=== PATIENT | male | born 1940 | race Caucasian/White ===

== ENCOUNTER 2022-08-10 18:04 | Outpatient (RCR) | payer MEDICARE, SELFPAY | END 2022-09-04 23:59 | disposition home or self-care (01) | LOC: MM 18:04 | PROVIDERS: PCP Internal Medicine; Visit Provider Internal Medicine | DX: Z51.81 Encounter for therapeutic drug level monitoring (principal); Z79.01 Long term (current) use of anticoagulants; D68.59 Other primary thrombophilia; E78.5 Hyperlipidemia, unspecified; I10 Essential (primary) hypertension; D64.9 Anemia, unspecified ==

== ENCOUNTER 2022-08-18 08:07 | Outpatient (OUT) | payer MEDICARE, SELFPAY ==
[2022-08-18 08:46] LABS: Basophils Percent Auto 0.2 % (0.2-2.0); Eosinophils Absolute Auto 0.2 10^3/uL (0.0-0.7); Immature Granulocytes Abs Auto 0.01 10^3/uL (0.00-0.03); Immature Granulocytes Pct Auto 0.2 % (0.0-0.5); Lymphocytes Absolute Auto 0.9 10^3/uL (1.2-3.8); Lymphocytes Percent Auto 20.4 % (20.5-60.0); Mean Corpuscular HGB Conc 33.3 g/dL (29.9-35.2); Mean Corpuscular Hemoglobin 33.1 pg (25.9-34.0); Mean Corpuscular Volume 99.3 fL (80.0-94.0); Mean Platelet Volume 8.3 fL (9.5-13.5); Monocytes Absolute Auto 0.5 10^3/uL (0.3-0.8); Monocytes Percent Auto 10.4 % (1.7-12.0); Neutrophils Absolute Auto 2.9 10^3/uL (1.4-6.5); Neutrophils Percent Auto 64.8 % (43.0-75.0); Platelet Count 127 10^3/uL (150-450); Red Blood Count 4.23 10^6/uL (4.70-6.10); Red Cell Distribution Width 12.6 % (11.0-15.0); White Blood Count 4.5 10^3/uL (4.0-11.0)
[2022-08-18 09:55] LABS: Alanine Aminotransferase 19 U/L (16-63); Albumin Globulin Ratio 0.9; Albumin Level 3.5 g/dL (3.4-5.0); Alkaline Phosphatase 52 U/L (46-116); Anion Gap 8.7; Aspartate Amino Transferase 16 U/L (15-37); Bilirubin Total 0.6 mg/dL (0.2-1.0); Calcium 8.7 mg/dL (8.5-10.1); Carbon Dioxide 30.6 mmol/L (21.0-32.0); Chloride 105 mmol/L (98-107); Chol HDL Ratio 2.4; Cholesterol 153 mg/dL (<=200); Estimated GFR (African America >60 (>=60); Estimated GFR (Non-African Ame >60 (>=60); Globulin 3.7 g/dL; Glucose 96 mg/dL (74-106); HDL Cholesterol 65 mg/dL (40-60); Potassium 4.3 mmol/L (3.5-5.1); Sodium 140 mmol/L (136-145); Total Protein 7.2 g/dL (6.4-8.2); Triglycerides 72 mg/dL (<=150); VLDL CHOLESTEROL 14.4 mg/dL
== END 2022-08-18 08:08 ==
LOC: LAB 08:12
PROVIDERS: PCP Specialist; Visit Provider Specialist
DX: I10 Essential (primary) hypertension (principal); D64.9 Anemia, unspecified; D68.59 Other primary thrombophilia; E78.5 Hyperlipidemia, unspecified; Z92.29 Personal history of other drug therapy
CPT/HCPCS: 36415; 80053; 80061; 85025; 85610; G0463

== ENCOUNTER 2022-09-09 10:28 | Outpatient (RCR) | payer MEDICARE, SELFPAY | END 2022-10-05 17:12 | disposition home or self-care (01) | LOC: MM 10:28 | PROVIDERS: PCP Internal Medicine; Visit Provider Internal Medicine | DX: Z51.81 Encounter for therapeutic drug level monitoring (principal); Z79.01 Long term (current) use of anticoagulants; D68.59 Other primary thrombophilia; Z92.29 Personal history of other drug therapy; I10 Essential (primary) hypertension; E78.5 Hyperlipidemia, unspecified | CPT/HCPCS: 85610; G0463 ==

== ENCOUNTER 2022-10-06 10:01 | Outpatient (RCR) | payer MEDICARE, SELFPAY | END 2022-11-05 17:45 | disposition home or self-care (01) | LOC: MM 10:01 | PROVIDERS: PCP Internal Medicine; Visit Provider Internal Medicine | DX: Z51.81 Encounter for therapeutic drug level monitoring (principal); Z79.01 Long term (current) use of anticoagulants; D68.59 Other primary thrombophilia; D64.9 Anemia, unspecified; E78.5 Hyperlipidemia, unspecified; I10 Essential (primary) hypertension | CPT/HCPCS: 85610; G0463 ==

== ENCOUNTER 2023-01-12 08:00 | Outpatient (RCR) | payer MEDICARE, SELFPAY | END 2023-02-04 16:33 | disposition home or self-care (01) | LOC: MM 08:00 | PROVIDERS: PCP Internal Medicine; Visit Provider Internal Medicine | DX: Z51.81 Encounter for therapeutic drug level monitoring (principal); Z79.01 Long term (current) use of anticoagulants; D68.59 Other primary thrombophilia; D64.9 Anemia, unspecified; Z92.29 Personal history of other drug therapy; E78.5 Hyperlipidemia, unspecified; I10 Essential (primary) hypertension | CPT/HCPCS: 85610; G0463 ==

== ENCOUNTER 2023-02-05 09:51 | Outpatient (RCR) | payer MEDICARE, SELFPAY | END 2023-03-05 15:36 | disposition home or self-care (01) | LOC: MM 09:51 | PROVIDERS: PCP Internal Medicine; Visit Provider Internal Medicine | DX: I10 Essential (primary) hypertension (principal); E78.5 Hyperlipidemia, unspecified; D64.9 Anemia, unspecified; D68.59 Other primary thrombophilia; Z92.29 Personal history of other drug therapy | CPT/HCPCS: 85610; G0463 ==

== ENCOUNTER 2023-03-08 02:42 | Outpatient (RCR) | payer MEDICARE, SELFPAY | END 2023-04-07 17:22 | disposition home or self-care (01) | LOC: MM 02:42 | PROVIDERS: PCP Internal Medicine; Visit Provider Internal Medicine | DX: Z51.81 Encounter for therapeutic drug level monitoring (principal); Z79.01 Long term (current) use of anticoagulants; I10 Essential (primary) hypertension; E78.5 Hyperlipidemia, unspecified; D64.9 Anemia, unspecified; D68.59 Other primary thrombophilia | CPT/HCPCS: 85610; G0463 ==

== ENCOUNTER 2023-04-08 01:59 | Outpatient (RCR) | payer MEDICARE, SELFPAY | END 2023-05-06 17:37 | disposition home or self-care (01) | LOC: MM 01:59 | PROVIDERS: PCP Internal Medicine; Visit Provider Internal Medicine | DX: Z51.81 Encounter for therapeutic drug level monitoring (principal); Z79.01 Long term (current) use of anticoagulants; I10 Essential (primary) hypertension; E78.5 Hyperlipidemia, unspecified; Z92.29 Personal history of other drug therapy; D64.9 Anemia, unspecified; D68.59 Other primary thrombophilia | CPT/HCPCS: 85610; G0463 ==

== ENCOUNTER 2023-05-07 03:43 | Outpatient (RCR) | payer MEDICARE, SELFPAY | END 2023-06-04 14:19 | disposition home or self-care (01) | LOC: MM 03:43 | PROVIDERS: PCP Internal Medicine; Visit Provider Internal Medicine | DX: Z51.81 Encounter for therapeutic drug level monitoring (principal); Z79.01 Long term (current) use of anticoagulants; D68.59 Other primary thrombophilia; D64.9 Anemia, unspecified; E78.5 Hyperlipidemia, unspecified; I10 Essential (primary) hypertension | CPT/HCPCS: 85610; G0463 ==

== ENCOUNTER 2023-06-07 03:09 | Outpatient (RCR) | payer MEDICARE, SELFPAY | END 2023-07-06 18:05 | disposition home or self-care (01) | LOC: MM 03:09 | PROVIDERS: PCP Internal Medicine; Visit Provider Internal Medicine | DX: Z51.81 Encounter for therapeutic drug level monitoring (principal); Z79.01 Long term (current) use of anticoagulants; I10 Essential (primary) hypertension; E78.5 Hyperlipidemia, unspecified; D64.9 Anemia, unspecified; D68.59 Other primary thrombophilia | CPT/HCPCS: 85610; G0463 ==

== ENCOUNTER 2023-07-07 00:25 | Outpatient (RCR) | payer MEDICARE, SELFPAY | END 2023-08-06 11:24 | disposition home or self-care (01) | LOC: MM 00:25 | PROVIDERS: PCP Internal Medicine; Visit Provider Internal Medicine | DX: Z51.81 Encounter for therapeutic drug level monitoring (principal); Z79.01 Long term (current) use of anticoagulants; I48.91 Unspecified atrial fibrillation | CPT/HCPCS: 85610; G0463 ==

== ENCOUNTER 2023-08-09 03:19 | Outpatient (RCR) | payer MEDICARE, SELFPAY | END 2023-09-03 10:49 | disposition home or self-care (01) | LOC: MM 03:19 | PROVIDERS: PCP Internal Medicine; Visit Provider Internal Medicine | DX: Z51.81 Encounter for therapeutic drug level monitoring (principal); Z79.01 Long term (current) use of anticoagulants; D68.59 Other primary thrombophilia; I10 Essential (primary) hypertension; E78.5 Hyperlipidemia, unspecified; D64.9 Anemia, unspecified | CPT/HCPCS: 85610; G0463 ==

== ENCOUNTER 2023-09-06 00:32 | Outpatient (RCR) | payer MEDICARE, SELFPAY | END 2023-10-06 10:13 | disposition home or self-care (01) | LOC: MM 00:32 | PROVIDERS: PCP Internal Medicine; Visit Provider Internal Medicine | DX: Z51.81 Encounter for therapeutic drug level monitoring (principal); Z79.01 Long term (current) use of anticoagulants; I10 Essential (primary) hypertension; E78.5 Hyperlipidemia, unspecified; D64.9 Anemia, unspecified; D68.59 Other primary thrombophilia | CPT/HCPCS: 85610; G0463 ==

== ENCOUNTER 2023-09-23 13:40 | Outpatient (OUT) | payer MEDICARE, SELFPAY ==
--- NOTE | 2023-09-23 | MR_ITS ---
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 TECHNIQUE: Multisequence MRI brain was performed with and without intravenous contrast. FINDINGS: There is no restricted diffusion to suggest acute infarct. There is no midline shift, mass effect, or abnormal extraaxial fluid collections. There are no abnormal parenchymal or leptomeningeal enhancement. There is mild enlargement of the cortical sulci and prominence of ventricular system, consistent with mild cerebral atrophy. There are a few nonspecific scattered foci of T2/FLAIR signal abnormality in the subcortical and periventricular white matter, likely reflect chronic microvascular ischemic changes. The major intracranial flow voids are visualized. The cerebellar tonsils are normal in position. The orbits demonstrate no suspicious enhancement or any focal lesions. The paranasal sinuses show no air-fluid level. The mastoid air cells are clear. The calvarium and extracranial soft tissues are unremarkable. MR/MR head/brain wo/w con IMPRESSION: No acute intracranial abnormality or abnormal intracranial enhancement. 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 Electronically authenticated by: BRITT DICK Date: 09/23/2023 23:22
--- NOTE | 2023-09-23 | MR_ITS ---
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 TECHNIQUE: MRI of the orbits was performed without and with contrast. FINDINGS: The globes are symmetric, normal in size, contour, and signal intensity. No orbital mass is visualized. The bilateral optic nerve, the optic chiasm and optic nerve sheaths are normal in signal and caliber, without abnormal enhancement. No suprasellar mass is present. The orbital fat is within normal limits, without fat stranding. The extraocular muscles are normal in caliber. The lacrimal glands are unremarkable. Both superior ophthalmic veins are normal and not dilated. Cavernous sinuses are normal. Mild T2/FLAIR signal abnormality are identified in the supratentorial white matter, most likely represent chronic microvascular ischemic changes. The preseptal, periorbital soft tissues appear normal. The paranasal sinuses show no air-fluid level. MR/MR orbit wo/w con IMPRESSION: Unremarkable MRI of orbits performed without and with contrast. Electronically authenticated by: BRITT DICK Date: 09/23/2023 23:28
--- OUTSIDE RECORDS SUMMARY | 2023-09-23 14:02 | XMS_ITS | CCD ---
Author Organization [facility] Care Team Providers Care Clock Maker Name Role Phone GERALDO ALTAMIRANO Primary Care Physician [phone] EVIE ., DR GERALDO Childers Admitting Unavailable ALTAMIRANO ., DR GERALDO Childers Attending Unavailable ALTAMIRANO ., DR GERALDO Childers Primary Care Unavailable ALTAMIRANO ., DR GERALDO Childers Consulting Unavailable ALTAMIRANO ., DR GERALDO Childers Admitting Unavailable ALTAMIRANO ., DR GERALDO Childers Attending Unavailable ALTAMIRANO ., DR GERALDO Childers Primary Care Unavailable ALTAMIRANO ., DR GERALDO Childers Consulting Unavailable ALTAMIRANO ., DR GERALDO Childers Admitting Unavailable ALTAMIRANO ., DR GERALDO Childers Attending Unavailable ALTAMIRANO ., DR GERALDO Childers Primary Care Unavailable ALTAMIRANO ., DR GERALDO Childers Consulting Unavailable ALTAMIRANO ., DR GERALDO Childers Consulting Unavailable ALTAMIRANO ., DR GERALDO Childers Admitting Unavailable ALTAMIRANO ., DR GERALDO Childers Attending Unavailable ALTAMIRANO ., DR GERALDO Childers Primary Care Unavailable ALTAMIRANO ., DR GERALDO Childers Attending Unavailable ALTAMIRANO ., DR GERALDO Childers Admitting Unavailable ALTAMIRANO ., DR GERALDO Childers Primary Care Unavailable ALTAMIRANO ., DR GERALDO Childers Consulting Unavailable ALTAMIRANO ., DR GERALDO Childers Attending Unavailable ALTAMIRANO ., DR GERALDO Childers Admitting Unavailable ALTAMIRANO ., DR GERALDO Childers Primary Care Unavailable ALTAMIRANO ., DR GERALDO Childers Consulting Unavailable ALTAMIRANO ., DR GERALDO Childers Attending Unavailable ALTAMIRANO ., DR GERALDO Childers Admitting Unavailable ALTAMIRANO ., DR GERALDO Childers Primary Care Unavailable ALTAMIRANO ., DR GERALDO Childers Consulting Unavailable ALTAMIRANO ., DR GERALDO Childers Attending Unavailable ALTAMIRANO ., DR GERALDO Childers Admitting Unavailable ALTAMIRANO ., DR GERALDO Childers Primary Care Unavailable ALTAMIRANO ., DR GERALDO Childers Consulting Unavailable ALTAMIRANO ., DR GERALDO Childers Attending Unavailable ALTAMIRANO ., DR GERALDO Childers Admitting Unavailable ALTAMIRANO ., DR GERALDO Childers Primary Care Unavailable ALTAMIRANO ., DR GERALDO Childers Consulting Unavailable ALTAMIRANO ., DR GERALDO Childers Admitting Unavailable ALTAMIRANO ., DR GERALDO Childers Consulting Unavailable ALTAMIRANO ., DR GERALDO Childers Primary Care Unavailable ALTAMIRANO ., DR GERALDO Childers Attending Unavailable ALTAMIRANO ., DR GERALDO Childers Admitting Unavailable ALTAMIRANO ., DR GERALDO Childers Attending Unavailable ALTAMIRANO ., DR GERALDO Childers Consulting Unavailable ALTAMIRANO ., DR GERALDO Childers Primary Care Unavailable ALTAMIRANO ., DR GERALDO Childers Admitting Unavailable ALTAMIRANO ., DR GERALDO Childers Attending Unavailable ALTAMIRANO ., DR GERALDO Childers Primary Care Unavailable ALTAMIRANO ., DR GERALDO Childers Consulting Unavailable ALTAMIRANO, GERALDO ROACH Primary Care Unavailable DANITZA V, AUDELIA Referring Unavailable ALTAMIRANO, GERALDO ROACH Primary Care Unavailable DANITZA V, AUDELIA Admitting Unavailable DANITZA V, AUDELIA Referring Unavailable DANIZTA V, AUDELIA Attending Unavailable ALTAMIRANO, GERALDO ANGELIMIMI Primary Care Unavailable DANITZA V, AUDELIA Attending Unavailable DANITZA V, AUDELIA Referring Unavailable POLINA OLIVIA Primary Care Unavailable DANITZA V, AUDELIA Referring Unavailable POLINA OLIVIA Primary Care Unavailable ALTAMIRANO, GERALDO ROACH Primary Care Unavailable DANITZA V, AUDELIA Attending Unavailable DANITZA V, AUDELIA Admitting Unavailable DANITZA V, AUDELIA Referring Unavailable Polina Olivia. Primary Care Physician Albaro NEWBERRY Attending Unavailable Albaro NEWBERRY Admitting Unavailable Polina Olivia Attending Unavailable Polina Olivia Attending Unavailable Polina Olivia Attending Unavailable Albaro NEWBERRY Attending Unavailable Leelee Castaneda Attending Unavailable Leelee Castaneda Admitting Unavailable LeonelLeelee quintana Attending Unavailable LeonelLeelee quintana Admitting Unavailable Polina Olivia Attending Unavailable MCKENZIE LOERA Attending Unavailable Allergies Allergy Classification Reported Allergen(s) Allergy Type Date of Onset Reaction(s) Facility (6 sources) Adhesive bandage; Translations: [Adhesive Bandage] Drug allergy Red color (qualifier value) [facility] (4 sources) Red Dye 1 Propensity to adverse reactions to substance Swelling, Hives [facility] Comment on above: swelling of tongue a nd lips (5 sources) Contrast media; Translations: [RED DYE] Drug allergy (disorder) 5 [facility] (8 sources) Latex; Translations: [LATEX] Drug allergy (disorder) 6 Eruption of skin (disorder) [facility] (1 source) Misc-Food; Translations: [Misc-Food] Food allergy (disorder) 4 [facility] (1 source) Adhesive agent; Translations: [ADHESIVE] Propensity to adverse reactions to drug (disorder) 3 [facility] (1 source) Mold; Translations: [MOLD EXTRACTS] Propensity to adverse reactions to drug (disorder) 3 [facility] (2 sources) No Known Medication Allergies; Translations: [No Known Medication Allergies] Propensity to adverse reactions (disorder) [facility] Medications Current Medications Medication Drug Class(es) Dates Sig (Normalized) Sig (Original) atenolol 50 mg oral tablet (4 sources) beta-Adrenergic Dejon Start: 06-01-2023 take 1 tablet by mouth once daily atenolol 50 mg Tab 50 mg = 1 tab(s), Oral, Daily, # 90 tab(s), Refills(s) 1, Pharmacy: [facility], 172, cm, 12/16/22 10:02:00 EDT, Height/Length Dosing, 73, kg, 12/16/22 10:02:00 EDT, Weight Dosing Start Date: 06/01/23 Status: Ordered Start: 11-17-2018 take 50 mg by mouth once daily atenolol 50 mg, Oral, Daily, Refills(s) 0 Start Date: 11/17/18 Status: Ordered famotidine 10 mg oral tablet (4 sources) Histamine-2 Receptor Antagonist Start: 03-28-2019 take 1 tablet by mouth once daily famotidine 10 mg oral tablet 10 mg = 1 tab(s), Oral, Daily Start Date: 03/28/19 Status: Ordered simvastatin 10 mg oral tablet (4 sources) HMG-CoA Reductase Inhibitor Start: 06-01-2023 take 1 tablet by mouth once daily at bedtime Zocor 10 mg Tab 10 mg, Oral, Once a day (at bedtime), # 90 tab(s), Refills(s) 1, Pharmacy: [facility], 172, cm, 12/16/22 10:02:00 EDT, Height/Length Dosing, 73, kg, 12/16/22 10:02:00 EDT, Weight Dosing Start Date: 06/01/23 Status: Ordered Start: 11-17-2018 take 10 mg by mouth once daily at bedtime Zocor 10 mg, Oral, Once a day (at bedtime), Refills(s) 0 Start Date: 11/17/18 Status: Ordered vitamin B12 (4 sources) Vitamin B12 Start: 11-17-2018 Vitamin B12 50 0 microgram, Oral, Daily, Refills(s) 0 Start Date: 11/17/18 Status: Ordered Vitamin D3 (4 sources) Start: 11-17-2018 Vitamin D3 See Instructions, 2,000 International_Unit Oral Daily, Refills(s) 0 Start Date: 11/17/18 Status: Ordered warfarin sodium 5 mg oral tablet (4 sources) Vitamin K Antagonist Start: 11-17-2018 warfarin See Instructions, take 5mg orally on mondays, wednesdays and fridays and 7.5 mg on tuesdays, , wednesday and sundays, Refills(s) 0 Start Date: 11/17/18 Status: Ordered Start: 11-17-2018 take 6.43 mg by mout h once daily warfarin 6.43 mg, Oral, Daily, Refills(s) 0 Start Date: 11/17/18 Status: Ordered Completed/Discontinued Medications Medication Drug Class(es) Dates Sig (Normalized) Sig (Original) ciprofloxacin 250 mg oral tablet (3 sources) Quinolone Antimicrobial Start: 07-01-2023 take 1 tablet by mouth once daily Cipro 250 mg Tab 250 mg = 1 tab(s), Oral, Daily, Take 1 tablet the day before the procedure and 1 tablet after the procedure, # 2 tab(s), Refills(s) 0, Pharmacy: [facility]/pharmacy #[id number], 172, cm, 12/16/22 10:02:00 EDT, Height/Length Dosing, 73, kg, 12/16/22 10:02:00 EDT, Weight Dosing Start Date: 07/01/23 Status: Ordered Start: 07-10-2021 take 1 tablet by ion th every twenty-four hours Cipro 500 mg Tab 500 mg = 1 tab(s), Oral, q24hr, Take 1 pill the day before the procedure and 1 pill after the procedure., # 2 tab(s), Refills(s) 0, Pharmacy: [facility]/pharmacy #[id number], 180, cm, 07/03/20 11:16:00 EDT, Height/Length Dosing, 75.6, kg, 06/25/20 13:44:00 Samuel SOLIMAN. Start Date: 07/10/21 Status: Ordered Problems Active Problems Problem Classification Problem Date Documented Date Episodic/Chronic Abdominal hernia (4 sources) Hiatal hernia 10-26-2018 Episodic Blindness and vision defects (2 sources) Diplopia; Translations: [Diplopia] Onset: 09-03-2023 Episodic Cancer of bladder (1 source) Malignant tumor of urinary bladder 10-26-2018 Chronic Cancer of bladder (1 source) History of malignant neoplasm of bladder; Translations: [Personal history of malignant neoplasm of bladder] Onset: 07-16-2023 Episodic Cancer; other and unspecified primary (4 sources) History of bladder neoplasm 11-17-2018 Episodic Cataract (1 source) Combined forms of age-related cataract, bilateral; Translations: [Combined forms of age-related cataract of both eyes] Onset: 03-31-2023 Chronic Coagulation and hemorrhagic disorders (4 sources) Other primary thrombophilia; Translations: [OTHER PRIMARY THROMBOPHILIA] Onset: 09-10-2021 Chronic Conditions associated with dizziness or vertigo (3 sources) Benign paroxysmal positional vertigo 08-04-2022 Episodic Deficiency and other anemia (3 sources) Anemia 08-04-2022 Episodic Disorders of lipid metabolism (5 sources) Hyperlipidemia; Translations: [Pure hypercholesterolemia, unspecified] Onset: 09-15-2021 10-26-2018 Chronic Esophageal disorders (3 sources) Gastroesophageal reflux disease without esophagitis; Translations: [Gastro-esophageal reflux disease without esophagitis] 10-29-2022 Chronic Essential hypertension (4 sources) Essential (primary) hypertension; Translations: [Essential hypertension] Onset: 09-15-2021 10-29-2022 Chronic Genitourinary symptoms and ill-defined conditions (12 sources) Increased frequency of urination; Translations: [Microscopic hematuria] 03-28-2019 Episodic Hyperplasia of prostate (5 sources) Benign prostatic hypertrophy with outflow obstruction; Translations: [Benign prostatic hyperplasia with lower urinary tract symptoms] Onset: 07-16-2023 10-26-2018 Chronic Nutritional deficiencies (1 source) Vitamin D deficiency, unspecified; Translations: [VITAMIN D DEFICIENCY UNSPECIFIED] Onset: 03-15-2022 Chronic Other aftercare (5 sources) skilled nursing (current) use of anticoagulants; Translations: [RESIDENTIAL CURRNT USE ANTICOAGULANTS] Onset: 09-15-2021 Episodic Other aftercare (1 source) Long-term current use of anticoagulant; Translations: [skilled nursing (current) use of anticoagulants] Onset: 07-16-2023 Episodic Other eye disorders (2 sources) Vertical strabismus, right eye; Translations: [Vertical strabismus, right eye] Onset: 09-03-2023 Episodic Other inflammatory condition of skin (1 source) Chafing of skin 08-10-2023 Episodic Other screening for suspected conditions (not mental disorders or infectious disease) (4 sources) Raised prostate specific antigen 09-26-2019 Episodic Pulmonary heart disease (5 sources) Pulmonary embolism; Translations: [Personal history of pulmonary embolism] Onset: 06-21-2022 10-26-2018 Episodic Residual codes; unclassified (4 sources) H/O: anticoagulant therapy 10-26-2018 Episodic Screening and history of mental health and substance abuse codes (4 sources) Ex-smoker 09-26-2019 Episodic Unclassified (4 sources) Asymptomatic microscopic hematuria 06-25-2020 Unclassified (4 sources) Drug therapy finding 09-26-2019 Unclassified (3 sources) Body mass index 20-24 - normal 08-04-2022 Unclassified (1 source) Seborrheic keratosis 08-10-2023 Past or Other Problems Problem Classification Problem Date Documented Da te Episodic/Chronic Deficiency and other anemia (4 sources) Nutritional anemia, unspecified; Translations: [NUTRITIONAL ANEMIA UNSPECIFIED] Onset: 03-10-2022 Episodic Malaise and fatigue (1 source) Other fatigue; Translations: [OTHER FATIGUE] Onset: 03-15-2022 Episodic Results Test Name Value Interpretation Reference Range Facility Ambulatory Visit Summaryon 0 08-10-2023 Ambulatory Visit Summary MCKENZIE MADRIGAL Matthew :1940 Visit Date:08/10/2023 Ambulatory Visit Instructions Your Diagnosis Pulmonary embolism Primary hypertension Anemia Anticoagulated Gastroesophageal reflux disease without esophagitis Mixed hyperlipidemia Chafing SK (seborrheic keratosis) Your Care Team Attending Physician - Polina Olivia MD Primary Care Physician - Polina Olivia MD This Is Your Medications List atenolol (atenolol 50 mg Tab) cholecalciferol (Vitamin D3) cyanocobalamin (Vitamin B12) famotidine (famotidine 10 mg oral tablet) simvastatin (Zocor 10 mg Tab) warfarin Procedures Performed Flexible cystoscope (07/16/2023), Transurethral resection of prostate (10/03/2013), Cystoscopy (07/21/2012), Transrectal biopsy of prostate using ultrasound (US) guidance (01/20/2002). Discharge Vitals Temperature (Temporal Artery) 37.4 ?C Heart Rate (Peripheral) 60 Respiratory Rate 16 Blood Pressure 124/80 Height 180 cm Height 71 in Weight 74.9 kg Weight 164.78 lb BMI 23.12 What to do next Scheduled Follow-Up Appointments Wednesday 9:30 AM EDT Where: [facility] Normal [facility] CBC w/ Auto Diffon 4 Basophils/100 WBC (Bld) 0.2 % Normal 0.0-2.0 [facility] Comment on above: Performed By: #### 2 [id number] #### [facility] [address] [place] [address] Basophils/Leukocytes Auto (Bld) [Pure # fraction] 0.0 E9/L Normal 0.0-0.2 [facility] Comment on above: Performed By: #### 2 [id number] #### [facility] [address] [place] [address] Eosinophils (Bld) [#/Vol] 0.1 E9/L Normal 0.0-0.5 [facility] Comment on above: Performed By: #### 2 [id number] #### [facility] [address] [place] [address] Eosinophils/100 WBC (Bld) 2.5 % Normal 0.0-8.0 [facility] Comment on above: Performed By: #### 2 [id number] #### [facility] [address] [place] [address] Erythrocyte distribution width (RBC) [Ratio] 13.5 % Normal 10.9-14.2 [facility] Comment on above: Performed By: #### 2 [id number] #### [facility] [address] [place] [address] Hematocrit (Bld) [Volume fraction] 38.3 % Normal 37.7-49.0 [facility] Comment on above: Performed By: #### 2 [id number] #### [facility] [address] [place] [address] Hemoglobin (Bld) [Mass/Vol] 13.2 g/dL Low 13.5-17.5 [facility] Comment on above: Performed By: #### 2 [id number] #### [facility] [address] [place] [address] Lymphocytes (Bld) [#/Vol] 1.2 E9/L Normal 1.0-4.0 [facility] Comment on above: Performed By: #### 2 [id number] #### [facility] [address] [place] [address] Lymphocytes/100 WBC (Bld) 22.9 % Normal 14.0-50.0 [facility] Comment on above: Performed By: #### 2 [id number] #### [facility] [address] [place] [address] MCH (RBC) [Entitic mass] 33.9 pg Normal 27.0-34.0 [facility] Comment on above: Performed By: #### 2 [id number] #### [facility] [address] [place] [address] MCHC (RBC) [Mass/Vol] 34.3 g/dL Normal 31.4-36.0 [facility] Comment on above: Performed By: #### 2 [id number] #### [facility] [address] [place] [address] MCV (RBC) [Entitic vol] 98.9 fL Normal 80.0-100.0 [facility] Comment on above: Performed By: #### 2 [id number] #### [facility] [address] [place] [address] Monocytes (Bld) [#/Vol] 0.5 E9/L Normal 0.2-1.0 [facility] Comment on above: Performed By: #### 2 [id number] #### [facility] [address] [place] [address] Neutrophils (Bld) [#/Vol] 3.4 E9/L Normal 2.0-7.5 [facility] Comment on above: Performed By: #### 2 [id number] #### [facility] [address] [place] [address] Neutrophils/100 WBC (Bld) 64.4 % Normal 36.0-75.0 [facility] Comment on above: Performed By: #### 2 [id number] #### [facility] [address] [place] [address] Platelet 149.0 E9/L Low 150.0-500.0 [facility] Comment on above: Performed By: #### 2 [id number] #### [facility] [address] [place] [address] Platelet mean volume (Bld) [Entitic vol] 6.7 fL Normal 6.4-10.8 [facility] Comment on above: Performed By: #### 2 [id number] #### [facility] [address] [place] [address] RBC (Bld) [#/Vol] 3.9 E12/L Low 4.3-5.9 [facility] Comment on above: Performed By: #### 2 [id number] #### [facility] [address] [place] [address] WBC corrected for nucl RBC Auto (Bld) [#/Vol] 5.2 E9/L Normal 4.0-11.0 [facility] Comment on above: Performed By: #### 2 [id number] #### [facility] [address] [place] [address] CHEMISTRYOrdered By: SYSTEM SYSTEM on 08-10-2023 Albumin [Mass/Vol] 3.9 g/dL Normal 3.3 - 5.0 gm/dL [facility] Albumin/Globulin [Mass ratio] 1.6 {ratio} Normal 1.1 - 2.2 [facility] ALP [Catalytic activity/Vol] 47 [iU]/d Normal 21 - 98 Int._Unit/L [facility] ALT No additional P-5'-P [Catalytic activity/Vol] 11 [iU]/d Normal 6 - 46 Int._Unit/L [facility] Anion gap [Moles/Vol] 8 mmol/L Normal 6 - 16 mEq/L R [facility] AST [Catalytic activity/Vol] 18 [iU]/d Normal 5 - 43 Int._Unit/L [facility] Bilirubin [Mass/Vol] 0.6 mg/dL Normal 0.0 - 1 .1 mg/dL [facility] Calcium [Mass/Vol] 8.4 mg/dL Low 8.9 - 11. 1 mg/dL [facility] Chloride [Moles/Vol] 106 mmol/L Normal 101 - 1 11 mmol/L [facility] Cholesterol [Mass/Vol] 138 mg/dL Normal 120 - 200 mg/dL [facility] Cholesterol in HDL [Mass/Vol] 48 mg/dL Invalid Interpretation Code [facility] Comment on above: Result Comment: '>= 60 LOW RISK' '<= 40 HIGH RISK' Cholesterol in LDL [Mass/Vol] 67 mg/dL Normal <=129mg/dL [facility] Cholesterol in VLDL [Mass/Vol] 30 mg/dL Normal 7 - 40 mg/dL [facility] CO2 [Moles/Vol] 29 mmol/L Normal 21 - 31 mmol/L [facility] Creatinine [Mass/Vol] 1.0 mg/dL Normal 0.5 - 1.3 mg/dL [facility] eGFR 75 mL/min/1.73 m2 Normal >=59mL/min /1 .73 m2 [facility] Globulin (S) [Mass/Vol] 2.5 g/dL Normal 1.4 - 4.0 gm/dL [facility] Glucose [Mass/Vol] 123 mg/dL Normal 55 - 199 mg/dL [facility] Potassium [Moles/Vol] 4.4 mmol/L Normal 3.5 - 5.3 mmol/L [facility] Protein [Mass/Vol] 6.4 g/dL Normal 6.0 - 7.8 gm/dL [facility] Sodium [Moles/Vol] 139 mmol/L Normal 135 - 145 mmol/L [facility] Triglyceride [Mass/Vol] 151 mg/dL High <=149mg/dL [facility] Urea nitrogen [Mass/Vol] 19 mg/dL Normal 5 - 21 mg/dL [facility] Urea nitrogen/Creatinine [Mass ratio] 19 mg/mg Normal 10 - 20 [facility] CMPon 08-10-2023 Albumin [Mass/Vol] 3.9 g/dL Normal 3.3-5.0 [facility] Comment on above: Performed By: #### 2 [id number] #### [facility] [address] [place] [address] Albumin/Globulin (S) [Mass conc ratio] 1.6 Normal 1.1-2.2 [facility] Comment on above: Performed By: #### 2 [id number] #### [facility] [address] [place] [address] ALP [Catalytic activity/Vol] 47 Int._Unit/L Normal 21-98 [facility] Comment on above: Performed By: #### 2 [id number] #### [facility] [address] [place] [address] ALT No additional P-5'-P [Catalytic activity/Vol] 11 Int._Unit/L Normal 6-46 [facility] Comment on above: Performed By: #### 2 [id number] #### [facility] [address] [place] [address] Anion gap [Moles/Vol] 8 mmol/L Normal 6-16 [facility] Comment on above: Performed By: #### 2 [id number] #### [facility] [address] [place] [address] AST [Catalytic activity/Vol] 18 Int._Unit/L Normal 5-43 [facility] Comment on above: Performed By: #### 2 [id number] #### [facility] [address] [place] [address] Bilirubin [Mass/Vol] 0.6 mg/dL Normal 0.0-1.1 [facility] Comment on above: Performed By: #### 2 [id number] #### [facility] [address] [place] [address] Calcium [Mass/Vol] 8.4 mg/dL Low 8.9-11.1 [facility] Comment on above: Performed By: #### 2 [id number] #### [facility] [address] [place] [address] Chloride [Moles/Vol] 106 mmol/L Normal 101-111 [facility] Comment on above: Performed By: #### 2 [id number] #### [facility] [address] [place] [address] CO2 [Moles/Vol] 29 mmol/L Normal 21-31 [facility] Comment on above: Performed By: #### 2 [id number] #### [facility] [address] [place] [address] Creatinine [Mass/Vol] 1.0 mg/dL Normal 0.5-1.3 [facility] Comment on above: Performed By: #### 2 [id number] #### [facility] [address] [place] [address] Globulin (S) [Mass/Vol] 2.5 g/dL Normal 1.4-4.0 [facility] Comment on above: Performed By: #### 2 [id number] #### [facility] [address] [place] [address] Glucose [Mass/Vol] 123 mg/dL Normal 55-199 [facility] Comment on above: Performed By: #### 2 [id number] #### [facility] [address] [place] [address] Potassium [Moles/Vol] 4.4 mmol/L Normal 3.5-5.3 [facility] Comment on above: Performed By: #### 2 [id number] #### [facility] [address] [place] [address] Protein [Mass/Vol] 6.4 g/dL Normal 6.0-7.8 [facility] Comment on above: Performed By: #### 2 [id number] #### [facility] [address] [place] [address] Sodium [Moles/Vol] 139 mmol/L Normal 135-145 [facility] Comment on above: Performed By: #### 2 674195 #### [facility] [address] [place] [address] Urea nitrogen [Mass/Vol] 19 mg/dL Normal 5-21 [facility] Comment on above: Performed By: #### 2 [id number] #### [facility] [address] [place] [address] Urea nitrogen/Creatinine [Mass ratio] 19 No Units Normal 10-20 [facility] Comment on above: Performed By: #### 2 [id number] #### [facility] [address] [place] [address] Family Medicine Office/Clini c Noteon 08-10-2023 Family Medicine Office/Clinic Note HPI Staff Mckenzie is an 83 year old male presenting for follow up htn, PE just renewed coumadin clinic for PT/INRs and monitoring warfarin dosing Patient is here for follow up on hypertension. How often are you checking your blood pressure? occasionally What are your average readings? been normal _ Yearly BMP: 08/18/22 questions/concerns: 1. does he need another covid shot and if so when 2. since he's lost weight has chaffing on his buttocks, causes raw areas 3. check spot on right arm History of Present Illness Here for follow up. - Hx of PE. - Multiple PE. Gets INR done. - Bps are good. - Has not had labs in a while. - NO issues with GERD - See staff HPI. Review of Systems PHQ Score Initial Depression Screen Score: 0 SCORE Physical Exam Vitals & Measurements T: 37.4 ?C(Temporal Artery) HR: 60(Peripheral) RR: 16 BP: 124/80 SpO2: 97% HT: 71 in HT: 180 cm WT: 74.9 kg WT: 164.78 lb BMI: 23.12 General: alert, no acute distress ENMT: oral mucosa moist, Cardiovascular: regular rate and rhythm, normal peripheral perfusion Respiratory: Lungs CTA, respirations non labored Extremities: no deformity, no trauma, Small SK noted on the R arm. Neurological: oriented x 4, LOC appropriate for age, CN II-XII intact, motor strength equal & normal bilaterally, speech normal Abdomen: Soft, Nontender, Non-distended, + BS Assessment/Plan 1. Pulmonary embolism (I26.99: Other pulmonary embolism without acute cor pulmonale) - No CP or SOB - INR is at goal after reviewing Ordered: CBC w/ Auto Diff Comprehensive Metabolic Panel Lab Specimen Collect 58442 Lipid Panel 2. Primary hypertension (I10: Essential (primary) hypertension) - At goal. - Continue meds as before Ordered: CBC w/ Auto Diff Comprehensive Metabolic Panel Lab Specimen Collect [id number] Lipid Panel 3. Anemia (D64.9: Anemia, unspecified) - Hx of - Need labs Ordered: CBC w/ Auto Diff Comprehensive Metabolic Panel Lab Specimen Collect 94276 Lipid Panel 4. Anticoagulated (Z79.01: manager intermediate (current) use of anticoagulants) - INR is at goal Ordered: CBC w/ Auto Diff Comprehensive Metabolic Panel Lab Specimen Collect [id number] Lipid Panel 5. Gastroesophageal reflux disease without esophagitis (K21.9: Gastro-esophageal reflux disease without esophagitis) - Controlled Ordered: CBC w/ Auto Diff Comprehensive Metabolic Panel Lab Specimen Collect 56611 Lipid Panel 6. Mixed hyperlipidemia (E78.2: Mixed hyperlipidemia) - Will check cholesterol today Ordered: CBC w/ Auto Diff Comprehensive Metabolic Panel Lipid Panel 7. Chafing (L30.4: Erythema intertrigo) - Use of vasoline will help. - Follow up PRN 8. SK (seborrheic keratosis) (L82.1: Other seborrheic keratosis) - Very small. - Advised monitoring - Follow up in 6 months for chronic issues. Discussed immunizations. Total time spent preparing for the encounter, evaluating and assessing the patient, documenting the visit, and ordering appropriate follow-up work was 50 minutes. Follow-up No qualifying data available Patient Education Hypertension, Adult Problem List/Past Medical History Ongoing Anemia Anticoagulated Asymptomatic microscopic hematuria Benign paroxysmal positional vertigo BMI 21.0-21.9, adult BPH with urinary obstruction Chafing Elevated PSA Former smoker Frequent urination Gastroesophageal reflux disease without esophagitis Hiatal hernia Hx of assisted use of blood thinners Mixed hyperlipidemia Personal history of bladder cancer Primary hypertension Pulmonary embolism SK (seborrheic keratosis) Historical Weak urine stream Procedure/Surgical History Flexible cystoscope (07/16/2023), Transurethral resection of prostate (10/03/2013), Cystoscopy (07/21/2012), Transrectal biopsy of prostate using ultrasound (US) guidance (01/20/2002). Medications atenolol 50 mg Tab, 50 mg= 1 tab(s), Oral, Daily, 1 refills famotidine 10 mg oral tablet, 10 mg= 1 tab(s), Oral, Daily Vitamin B12, 500 mcg, Oral, Daily Vitamin D3, See Instructions warfarin, See Instructions Zocor 10 mg Tab, 10 mg, Oral, Once a day (at bedtime), 1 refills Allergies Adhesive Bandage (Red) Latex (Rash) Red Dye (Swelling, Hives) Social History Alcohol - Low Risk, 11/17/2018 Beer, Others hurt by drinking: No., 12/16/2022 Tobacco Former smoker, quit more than 30 days ago Tobacco Use:. Never Smokeless Tobacco Use:. Cigarettes, Started age 20.0 Years. Stopped age 33 Years. Household tobacco concerns: No., 08/10/2023 Family History Acute myocardial infarction: Father. TB - Pulmonary tuberculosis: Father. Immunizations Vaccine Date Status Comments influenza virus vaccine, inactivated 12/05/2022 Recorded SARS-CoV-2 (COVID-19) [id number] 01/20/2022 Recorded influenza virus vaccine, inactivated 12/08/2021 Recorded SARSCoV2 mRNA(henkvsahm-cpof-tzk ros) vac 08/21/2021 Recorded influenza virus v (more content not included)... Normal [facility] Comment on above: Result Comment: Elec tronically Signed By: John HOWARD, Polina Cardenas\.br\Date and Time Signed: 08/10/23 13:37 EDT HEMATOLOGYOrdered By: SYSTEM SYSTEM on 08-10-2023 Basophils/100 WBC (Bld) 0.2 % Normal 0.0 - 2.0 % Remisol Heme Basophils/Leukocytes Auto (Bld) [Pure # fraction] 0.0 E9/L Normal 0.0 - 0.2 E9/L Remisol Heme Eosinophils (Bld) [#/Vol] 0.1 E9/L Normal 0.0 - 0.5 E9/L Remisol Heme Eosinophils/100 WBC (Bld) 2.5 % Normal 0.0 - 8.0 % Remisol Heme Erythrocyte distribution width (RBC) [Ratio] 13.5 % Normal 10.9 - 14.2 % Remisol Heme Hematocrit (Bld) [Volume fraction] 38.3 % Normal 37.7 - 49.0 % Remisol Heme Hemoglobin (Bld) [Mass/Vol] 13.2 g/dL Low 13.5 - 17.5 gm/dL Remisol Heme Lymphocytes (Bld) [#/Vol] 1.2 E9/L Normal 1.0 - 4.0 E9/L Remisol Heme Lymphocytes/100 WBC (Bld) 22.9 % Normal 14.0 - 50.0 % Remisol Heme MCH (RBC) [Entitic mass] 33.9 pg Normal 27.0 - 34.0 pg Remisol Heme MCHC (RBC) [Mass/Vol] 34.3 g/dL Normal 31.4 - 36.0 gm/dL Remisol Heme MCV (RBC) [Entitic vol] 98.9 fL Normal 80.0 - 100.0 fL Remisol Heme Monocytes (Bld) [#/Vol] 0.5 E9/L Normal 0.2 - 1.0 E9/L Remisol Heme Monocytes/100 WBC (Bld) 10.0 % Normal 4.0 - 14.0 % Remisol Heme Neutrophils (Bld) [#/Vol] 3.4 E9/L Normal 2.0 - 7.5 E9/L Remisol Heme Neutrophils/100 WBC (Bld) 64.4 % Normal 36.0 - 75.0 % Remisol Heme Platelet 149.0 E9/L Low 150.0 - 500.0 E9/L Remisol Heme Platelet mean volume (Bld) [Entitic vol] 6.7 fL Normal 6.4 - 10.8 fL Remisol Heme RBC (Bld) [#/Vol] 3.9 E12/L Low 4.3 - 5.9 E12/L Remisol Heme WBC corrected for nucl RBC Auto (Bld) [#/Vol] 5.2 E9/L Normal 4.0 - 11.0 E9/L Remisol Heme Lipid Panelon 08-10-2023 Cholesterol [Mass/Vol] 138 mg/dL Normal 120-200 [facility] Comment on above: Performed By: #### 2 [id number] #### [facility] [address] [place] [id number] Cholesterol in HDL [Mass/Vol] 48 mg/dL Invalid Interpretation Code [facility] Comment on above: Result Comment: '>= 60 LOW RISK' '<= 40 HIGH RISK' Performed By: #### 2 [id number] #### [facility] [address] [place] [address] Cholesterol in LDL [Mass/Vol] 67 mg/dL Normal <=129 [facility] Comment on above: Performed By: #### 2 [id number] #### [facility] [address] [place] [address] Cholesterol in VLDL [Mass/Vol] 30 mg/dL Normal 7-40 [facility] Comment on above: Performed By: #### 2 [id number] #### [facility] [address] [place] [address] Triglyceride [Mass/Vol] 151 mg/dL High <=149 [facility] Comment on above: Performed By: #### 2 [id number] #### [facility] [address] [place] [address] Patient Educationon 08-10-19 24 Patient Education Cardiovascular Hypertension, Adult High blood pressure (hypertension) is when the force of blood pumping through the arteries is too strong. The arteries are the blood vessels that carry blood from the heart throughout the body. Hypertension forces the heart to work harder to pump blood and may cause arteries to become narrow or stiff. Untreated or uncontrolled hypertension can lead to a heart attack, heart failure, a stroke, kidney disease, and other problems. A blood pressure reading consists of a higher number over a lower number. Ideally, your blood pressure should be below 120/80. The first ( top ) number is called the systolic pressure. It is a measure of the pressure in your arteries as your heart beats. The second ( bottom ) number is called the diastolic pressure. It is a measure of the pressure in your arteries as the heart relaxes. What are the causes? The exact cause of this condition is not known. There are some conditions that result in high blood pressure. What increases the risk? Certain factors may make you more likely to develop high blood pressure. Some of these risk factors are under your control, including: ? Smoking. ? Not getting enough exercise or physical activity. ? Being overweight. ? Having too much fat, sugar, calories, or salt (sodium) in your diet. ? Drinking too much alcohol. Other risk factors include: ? Having a personal history of heart disease, diabetes, high cholesterol, or kidney disease. ? Stress. ? Having a family history of high blood pressure and high cholesterol. ? Having obstructive sleep apnea. ? Age. The risk increases with age. What are the signs or symptoms? High blood pressure may not cause symptoms. Very high blood pressure (hypertensive crisis) may cause: ? Headache. ? Fast or irregular heartbeats (palpitations). ? Shortness of breath. ? Nosebleed. ? Nausea and vomiting. ? Vision changes. ? Severe chest pain, dizziness, and seizures. How is this diagnosed? This condition is diagnosed by measuring your blood pressure while you are seated, with your arm resting on a flat surface, your legs uncrossed, and your feet flat on the floor. The cuff of the blood pressure monitor will be placed directly against the skin of your upper arm at the level of your heart. Blood pressure should be measured at least twice using the same arm. Certain conditions can cause a difference in blood pressure between your right and left arms. If you have a high blood pressure reading during one visit or you have normal blood pressure with other risk factors, you may be asked to: ? Return on a different day to have your blood pressure checked again. ? Monitor your blood pressure at home for 1 week or longer. If you are diagnosed with hypertension, you may have other blood or imaging tests to help your health care provider understand your overall risk for other conditions. How is this treated? This condition is treated by making healthy lifestyle changes, such as eating healthy foods, exercising more, and reducing your alcohol intake. You may be referred for counseling on a healthy diet and physical activity. Your health care provider may prescribe medicine if lifestyle changes are not enough to get your blood pressure under control and if: ? Your systolic blood pressure is above 130. ? Your diastolic blood pressure is above 80. Your personal target blood pressure may vary depending on your medical conditions, your age, and other factors. Follow these instructions at home: Eating and drinking ? Eat a diet that is high in fiber and potassium, and low in sodium, added sugar, and fat. An example of this eating plan is called the DASH diet. DASH stands for Dietary Approaches to Stop Hypertension. To eat this way: ? Eat plenty of fresh fruits and vegetables. Try to fill one half of your plate at each meal with fruits and vegetables. ? Eat whole grains, such as whole-wheat pasta, brown rice, or whole-grain bread. Fill about one fourth of your plate with whole grains. ? Eat or drink low-fat dairy products, such as skim milk or low-fat yogurt. ? Avoid fatty cuts of meat, processed or cured meats, and poultry with skin. Fill about one fourth of your plate with lean proteins, such as fish, chicken without skin, beans, eggs, or tofu. ? Avoid pre-made and processed foods. These tend to be higher in sodium, added sugar, and fat. ? Reduce your daily sodium intake. Many people with hypertension should eat less than 1,500 mg of sodium a day. ? Do not drink alcohol if: ? Your health care provider tells you not to drink. ? You are , may be , or are planning to become . ? If you drink alcohol: ? Limit how much you have to: ? 0?1 drink a day for women. ? 0?2 drinks a day for men. ? Know how much alcohol is in your drink. In the [place] one drink equals one 12 oz bottle of beer (355 mL), one 5 oz glass of wine (148 mL), or one 1? oz glass (more content not included)... Normal [facility] eGFRon 08-10-2023 eGFR 75 mL/min/1.73 m2 Normal >=59 [facility] Comment on above: Order Comment: Order added by Discern Expert. Performed By: #### 1 [id number] #### [facility] [address] [place] [address] Physician Referralon 024 Physician Referral [id number] FF Normal [facility] UroVysion Fish and Urine Cyt o ([facility])on 07-23-2023 UVFISH & UC Diagnosis Info Invalid Interpretation Code [facility] Comment on above: Result Comment: A:Ur ine,Urine:Voided Diagnosis Summary - Diagnosis Summary - The UroVysion FISH study detected normal copy numbers for chromosomes 3, 7, 17, and 9p21. 105 cells were analyzed in this evaluation. No evidence of aneuploidy for chromosomes 3, 7, or 17 or deletion of the 9p21 locus was found in cells present in this specimen. This test does not rule out the possibility of a low grade non-invasive papillary urothelial carcinoma. These findings should be correlated with cytology and cystoscopy results.* Microscopic Notes - Microscopic Notes - Abnormal cells 9p21 deletions: Abnormal cells aneploid events: Total cells analyzed: 105 Hematuria: Gross Description Site ID:A color Yellow fixative Alcohol Received 110 mls of clear yellow fluid with the patient's name and, Urine on the vial. Electronically signed by : on: 07/23/2023 12:03:18 Performed By: #### 1 [id number] #### [facility] [address] [place] [address] Consent for Procedure/Surger yon 07-21-2023 Consent for Procedure/Surgery [id number] TIFF Normal [facility] Lab Reportson 07-21-2023 Lab Reports [id number] FF Normal [facility] Ambulatory Visit Summaryon 0 07-16-2023 Ambulatory Visit Summary MCKENZIE MADRIGAL :1940 Visit Date:07/16/2023 Ambulatory Visit Instructions Your Diagnosis Personal history of bladder cancer BPH with urinary obstruction Anticoagulated Your Care Team Attending Physician - Albaro NEWBERRY MD Primary Care Physician - Polina Olivia MD This Is Your Medications List ciprofloxacin (Cipro 250 mg Tab) Contact prescribing physician if questions or concerns atenolol (atenolol 50 mg Tab) cholecalciferol (Vitamin D3) cyanocobalamin (Vitamin B12) famotidine (famotidine 10 mg oral tablet) simvastatin (Zocor 10 mg Tab) warfarin Procedures Performed Flexible cystoscope (07/16/2023), Transurethral resection of prostate (10/03/2013), Cystoscopy (07/21/2012), Transrectal biopsy of prostate using ultrasound (US) guidance (01/20/2002). Discharge Vitals Heart Rate (Peripheral) 59 Blood Pressure 134/92 Height 180 cm Height 71 in Weight 72.2 kg Weight 158.84 lb BMI 22.28 What to do next Scheduled Follow-Up Appointments Wednesday 9:30 AM EDT Where: [facility] Normal [facility] UroVysion Fish and Urine Cyt o ([facility])on 07-16-2023 [facility] Method of Extraction Voided Normal [facility] Comment on above: Performed By: #### 1 [id number] #### [facility] [address] [place] [address] [facility] Number of Jars 1 Invalid Interpretation Code [facility] Comment on above: Performed By: #### 1 [id number] #### [facility] [address] [place] [address] [facility] Specimen Urine Normal [facility] Comment on above: Performed By: #### 1 [id number] #### [facility] [address] [place] [address] [facility] Type of Service Technical Only Normal [facility] Comment on above: Performed By: #### 1 [id number] #### [facility] [address] [place] [address] Urology Office/Clinic Noteon 07-16-2023 Urology Office/Clinic Note Chief Complaint cysto HPI Staff Cystoscopy for 1 year bladder check with FISH/Cytology. Abx taken History of Present Illness Tests reviewed: none. I have reviewed the previous health record information and history for this patient from Dr. Rob. I have reviewed and verified the staff HPI to be accurate for this encounter. There have been no associated fever, chills, flank pain, or blood in the urine. Denies any urinary infections since last encounter. Review of Systems PHQ Score Initial Depression Screen Score: 0 SCORE ROS - Provider Constitutional: denies weight loss, denies hot flashes. Eyes: denies eye problems. Gastrointestinal: denies nausea, denies vomiting. Cardiovascular: denies chest pain or angina. Integumentary: no dryness Musculoskeletal: denies musculoskeletal symptoms. ENMT: denies otolaryngeal symptoms. Respiratory: no shortness of breath. Heme/Lymph: denies easy bleeding tendency, denies easy bruising tendency. Psychiatric: no confusion, no anxiety. Genitourinary: See HPI. Procedure Operative Information Anesthesia Type: Local Procedure: Local Cystoscopy Complications: None Surgical risks, benefits, details of the procedure have been explained to the patient. Full informed consent has been obtained. Intraoperative Information Prepped: Patient is brought back to the endoscopy suite. Patient is placed in supine position. Patient prepped in the usual fashion with Betadine solution. 2% Xylocaine Jelly is placed per Urethra. After waiting several minutes, the Cystoscope is introduced. The Urethra is: Normal The Prostatic Urethra is: long, obstructing. large regrowth The Bladder: diffuse open diverticuli, neg for tumors., Trabeculated: Severe (3) The Ureteral orifices: Show efflux of clear urine. Specimens Removed: pt is going to try and void prior to leaving appt for FISH/cytology. Removal: Cystoscope is removed. The patient tolerated it well. Postoperative Information Patient is discharged home with antibiotic coverage. Follow up arranged. Assessment/Plan Former RWR pt. 1. Personal history of bladder cancer (Z85.51: Personal history of malignant neoplasm of bladder) Initial TURBT 10/03/13. Path shows noninvasive, high-grade papillary urothelial carcinoma. Muscularis propria (detrusor muscle) is present, and is neg for carcinoma. Last cysto 07/22/22. FISH/cytology negative. Cysto IO today without complications. Pt to complete prophy abx. Reference procedural section. -Cysto/FISH/cytol in 1 year 2. BPH with urinary obstruction (N40.1: Benign prostatic hyperplasia with lower urinary tract symptoms) S/p TURP 09/2013. Not taking any BPH meds. Cysto IO today without complications. Reference procedural section for findings. 3. Anticoagulated (Z79.01: manager intermediate (current) use of anticoagulants) Warfarin. Elevated risk for periop complications. Follow-up With When Contact Information TYSON HOWARD, Albaro Up, [address] [place] [address]- Additional Instructions: Cysto/FISH/cytol in 1 year Patient Education Cystoscopy I, rPiyanka Hassan, personally scribed for Dr. Newberry on 07/16/2023 13:55:14. Documentation recorded by the Priyanka wesley, accurately reflects the services(s) I performed and decisions made by me. Authenticated by Dr. Newberry on 07/16/2023 13:57:31.13:55:14. Problem List/Past Medical History Ongoing Anemia Anticoagulated Asymptomatic microscopic hematuria Benign paroxysmal positional vertigo BMI 21.0-21.9, adult BPH with urinary obstruction Elevated PSA Former smoker Frequent urination Gastroesophageal reflux disease without esophagitis Hiatal hernia Hx of assisted use of blood thinners Microhematuria Mixed hyperlipidemia Personal history of bladder cancer Primary hypertension Pulmonary embolism Historical Weak urine stream Procedure/Surgical History Flexible cystoscope (07/16/2023), Transurethral resection of prostate (10/03/2013), Cystoscopy (07/21/2012), Transrectal biopsy of prostate using ultrasound (US) guidance (01/20/2002). Medications atenolol 50 mg Tab, 50 mg= 1 tab(s), Oral, Daily, 1 refills Cipro 250 mg Tab, 250 mg= 1 tab(s), Oral, Daily famotidine 10 mg oral tablet, 10 mg= 1 tab(s), Oral, Daily Vitamin B12, 500 mcg, Oral, Daily Vitamin D3, See Instructions warfarin, See Instructions Zocor 10 mg Tab, 10 mg, Oral, Once a day (at bedtime), 1 refills Allergies Adhesive Bandage (Red) Latex (Rash) Red Dye (Swelling, Hives) Social History Alcohol - Low Risk, 11/17/2018 Beer, Others hurt by drinking: No., 12/16/2022 Tobacco Former smoker, quit more than 30 days ago Tobacco Use:. Never Smokeless Tobacco Use:. Cigarettes, Started age 18.0 Years. Stopped age 33 Years. Household tobacco concerns: No., 07/16/2023 Family History Acute myocardial infarction: Father. TB - Pulmonary tuberculosis: (more content not included)... Normal [facility] Comment on above: Result Comment: Elec tronically Signed By: Albaro NEWBERRY MD.br\Date and Time Signed: 07/16/23 13:57 EDT\.br\Electronically Co-Signed By: Priyanka Hassan.br\Date and Time Co-Signed: 07/16/23 13:55 EDT Reminderson 07-01-2023 Reminders - From: Perla Hammer To: EU - Recalls Newberry; Sent: 07/01/2023 10:30:44 EDT Show up: 04/08/2024 10:30:00 EST Subject: Cysto/FISH/cytol Due Date/Time: 05/01/2024 10:30:00 EST Reminder/Recall Pt is due in July 2024 for 1 year cysto/fish/cytol (bt ck) Normal [facility] Reportson 06-21-2023 Lab Reports [id number] IFF Normal [facility] Reportson 05-14-2023 Lab Reports [id number] IFF Normal [facility] Reportson 04-20-2023 Lab Reports [id number] IFF Normal [facility] ANES POSTPROC EVALon 024 ANES POSTPROC EVAL HNO ID: [id number] Author: ELVER WEBSTER MD Service: Anesthesiology Author Type: Anesthesiologist Type: Anesthesia Postprocedure Evaluation Filed: 04/14/2023 11:39 Note Text: POST ANESTHESIA EVALUATION NOTE : 1940 Procedure Summary Date: 04/14/23 Room / Location: [address] Anesthesia Start: 1113 Anesthesia Stop: 1136 Procedures: PHACOEMULSIFICATION CATARACT IMPLANT INTRAOCULAR LENS W/O ENDOSCOPIC CYCLOPHOTOCOAGULATION (Right: Eye) OPHTHALMIC BIOMETRY BY PARTIAL COHERENCE INTERFEROMETRY W/INTRAOCULAR LENS POWER CALCULATION (Right: Eye) Diagnosis: Combined forms of age-related cataract of both eyes (Combined forms of age-related cataract of both eyes [H25.813]) Surgeons: Audelia Kirkpatrick V, MD Responsible Provider: Elver Webster MD Anesthesia Type: MAC ASA Status: 3 Anesthesia Type: MAC Last Vitals BP 110/74 Temp 36.2 ?C (97.2 ?F) (Temporal) Resp 16 SpO2 100% Post Anesthesia Patient Status Patient Evaluation: PACU. PACU/ICU Patient Condition: stable. Anticipated Disposition: phase 2 then home. Neurological Status: aware and responsive. Pulmonary Status: breathing comfortably on room air Airway Control: returned to baseline unsupported. Cardiovascular Status: stable. Pain Management: clinically adequate Postoperative Hydration: acceptable. Intraoperative Events: no significant anesthesia events Recommendation: continue current plan of care. Anesthesia Observations No Documentation SIGNATURE: Elver Webster MD PATIENT NAME: Mckenzie Madrigal DATE: April 14, 2023 TIME: 11:39 AM CSN: [id number] Normal [facility] ANES PRE-OPon 04-14-2023 ANES PRE-OP HNO ID: [id number] Author: ELVER WEBSTER MD Service: Anesthesiology Author Type: Anesthesiologist Type: Anesthesia Preprocedure Evaluation Filed: 04/14/2023 10:48 Note Text: ANESTHESIOLOGY DAY OF SURGERY NOTE : 1940 Procedure Information Date/Time: 04/14/23 1100 Procedures: PHACOEMULSIFICATION CATARACT IMPLANT INTRAOCULAR LENS W/O ENDOSCOPIC CYCLOPHOTOCOAGULATION (Right: Eye) OPHTHALMIC BIOMETRY BY PARTIAL COHERENCE INTERFEROMETRY W/INTRAOCULAR LENS POWER CALCULATION (Right: Eye) Location: [address] Surgeons: Audelia Kirkpatrick V, MD Estimated body mass index is 22.75 kg/m? as calculated from the following: Height as of 03/23/23: 180.3 cm (5' 11 ). Weight as of 03/23/23: 74 kg (163 lb 2.3 oz). Most recent hematocrit and potassium results: No results found for this basename: HCT,HEMATOCRIT,K,POTASS IUM Relevant Problems CARDIO (+) Primary hypertension GI (+) Gastroesophageal reflux disease without esophagitis NEURO-PSYCH (+) History of bladder cancer (+) History of pulmonary embolus (PE) I - PHYSICAL EVALUATION AIRWAY Patient intubated: No. Tracheostomy tube not present Mallampati: II. TM distance: >3 FB. Neck ROM: full ROM without neurological symptoms. Mouth opening: adequate. Short neck: no. Thick neck: no DENTAL Normal dental observations. Dentures, upper: complete. Additional exam findings: yes. CARDIOVASCULAR Normal cardiovascular observations. Rhythm: regular Rate: normal PULMONARY Normal pulmonary observations. Breath sounds clear to auscultation. II - ANESTHESIA PLAN ASA Score: 3 Anesthetic Plan: MAC The patient is not a current smoker. NPO Status: adequate Beta Dejon Monitoring Plan Monitoring plan: standard ASA. Post Procedure Analgesic Plan Postoperative analgesic plan: multimodal analgesia. Informed Consent Anesthetic risks, benefits, alternatives, personnel and consent discussed: yes. Patient / Responsible Alliance Party agrees to proceed: yes Patient / Surrogate agrees to blood products: yes Significant changes in the patient condition since the History and Physical, not otherwise documented in primary service progress note: no. Potential Anesthesia issues that may suggest increased risk of complications or contraindication to planned procedure: none. Vitals Value Taken Time BP 110/74 04/14/23 1024 Pulse Resp 16 04/14/23 1024 Temp 36.2 ?C (97.2 ?F) 04/14/23 1024 SpO2 100 % 04/14/23 1024 Facility-Administered Medications as of 04/14/2023 Medication Dose Route Frequency - NaCl 0.9% iv infusion 30 mL/hr INTRAVENOUS CONTINUOUS - [COMPLETED] lidocaine HCl (PF) 40 mg/mL 2 mg injection (XYLOCAINE) 0.05 mL RIGHT EYE EVERY 5 MINUTES X 3 DOSES - [COMPLETED] PHENYLephrine 2.5 % 1 Drop (AK-DILATE, JAY-SYNEPHRINE) 1 Drop RIGHT EYE EVERY 5 MINUTES X 3 DOSES - [COMPLETED] tropicamide 1 % 1 Drop (MYDRIACYL) 1 Drop RIGHT EYE EVERY 5 MINUTES X 3 DOSES - cyclopentolate 1 % 1 Drop (CYCLOGYL) 1 Drop RIGHT EYE Pre-Op PRN - [COMPLETED] keTORolac 0.5 % 1 Drop (ACULAR) 1 Drop RIGHT EYE q 5 MIN - [COMPLETED] Povidone-Iodine 5 % 30 mL ophth soln (BETADINE) 30 mL RIGHT EYE ONCE - [COMPLETED] balanced salts 15 mL (BSS) 15 mL RIGHT EYE ONCE - [COMPLETED] lidocaine HCl (PF) 40 mg/mL 2 mg injection (XYLOCAINE) 0.05 mL LEFT EYE EVERY 5 MINUTES X 3 DOSES - [COMPLETED] PHENYLephrine 2.5 % 1 Drop (AK-DILATE, JAY-SYNEPHRINE) 1 Drop LEFT EYE EVERY 5 MINUTES X 3 DOSES - [COMPLETED] tropicamide 1 % 1 Drop (MYDRIACYL) 1 Drop LEFT EYE EVERY 5 MINUTES X 3 DOSES - [COMPLETED] keTORolac 0.5 % 1 Drop (ACULAR) 1 Drop LEFT EYE q 5 MIN - [COMPLETED] Povidone-Iodine 5 % 30 mL ophth soln (BETADINE) 30 mL LEFT EYE ONCE - [COMPLETED] balanced salts 15 mL (BSS) 15 mL LEFT EYE ONCE Outpatient Medications as of 04/14/2023 Medication Sig - prednisoLONE acetate (PRED FORTE) 1 % ophthalmic suspension USE DIRECTED BY PHYSICIAN, IN OPERATIVE EYE, BEGINNING ONE DAY AFTER SURGERY - keTORolac (ACULAR) 0.5 % ophthalmic solution USE DIRECTED BY PHYSICIAN, IN OPERATIVE EYE, BEGINNING ONE DAY AFTER SURGERY - famotidine (PEPCID) 10 mg tablet Take 10 mg by mouth. - atenolol (TENORMIN) 50 mg tablet - simvastatin (ZOCOR) 10 mg tablet - warfarin (COUMADIN) 5 mg tablet Take 5 mg by mouth once daily. As directed - Cholecalciferol, Vitamin D3, (VITAMIN D) 1,000 unit cap Take 2,000 Units by mouth once daily. - cyanocobalamin (VITAMIN B-12) 1,000 mcg tab Take 500 mcg by mouth once daily. - prednisoLONE acetate (PRED FORTE) 1 % ophthalmic suspension USE DIRECTED BY PHYSICIAN, IN OPERATIVE EYE, BEGINNING ONE DAY AFTER SURGERY - keTORolac (ACULAR) 0.5 % ophthalmic solution USE DIRECTED BY PHYSICIAN, IN OPERATIVE EYE, BEGINNING ONE DAY AFTER SURGERY I have interviewed and examined the patient. I have reviewed the medical record and/or the pre-anesthesia evaluation, pertinent labs, and test results. This contains updated inf (more content not included)... [facility] OPERATIVE NOon 04-14-2023 OPERATIVE NO HNO ID: [id number] Author: AUDELIA KIRKPATRICK MD Service: Ophthalmology Author Type: Physician Type: Operative Report Filed: 04/14/2023 11:33 Note Text: OPERATIVE REPORT DATE OF SERVICE: April 14, 2023 PRIMARY SURGEON: Audelia Kirkpatrick M.D. FOOTWEAR FACTORY WORKER: None [Any nurse listed as assisting or otherwise participating in this patient's care in the operating room has solely performed the duties of a circulating nurse.] Procedure(s) (LRB): PHACOEMULSIFICATION CATARACT IMPLANT INTRAOCULAR LENS W/O ENDOSCOPIC CYCLOPHOTOCOAGULATION (Right) OPHTHALMIC BIOMETRY BY PARTIAL COHERENCE INTERFEROMETRY W/INTRAOCULAR LENS POWER CALCULATION (Right) ANESTHESIA: Topical with monitored anesthesia care. PREOPERATIVE DIAGNOSIS: Combined cataract POSTOPERATIVE DIAGNOSIS: Combined cataract, presbyopia OPERATIVE INDICATIONS: BAT 20/125 OPERATIVE PROCEDURE: The patient was admitted to the operating suite where an IV and BP, EKG, and O2 monitors were placed. The operative eye was pretreated with 2.5% tropicamide and 1% phenylephrine eye drops. The operative eye was confirmed and marked. The intended Intraocular lens model and power circled on the patient's source document was confirmed to match the intraocular lens model and power selected from the Intraocular lens consignment, in accordance with hospital intraocular lens verification policy. Nasal oxygen was administered. With the patient in the supine position, topical lidocaine 4% was placed in the eye. The patient was then prepped and draped in the usual sterile fashion for intraocular surgery. After a time-out confirming correct patient using two unique identifiers, correct eye, correct operation, presence of allergies, correct implant, and implant sterility date, an eyelid speculum was placed. Under the operating microscope a beveled clear corneal incision was created temporally with a [place] blade then a 2.4 mm keratome. The anterior chamber was reformed with Viscoat, after which the anterior capsule was opened centrally. Using the Utrata forceps a continuous curvilinear capsulorrhexis of approximately 5.5 mm round was created. Gentle hydrodissection was accomplished using preservative-free lidocaine on a 27-gauge cannula. Using the Larry phacoemulsification unit with the Kelman curved tip, the anterior chamber was entered and the nucleus was removed while it was in the bag. The epinuclear ring was dissected into several segments, then removed using the phacoemulsification unit set to the desired aspiration flow rate and ultrasound parameters. It was necessary to use chopper forceps at various intervals to aid in the fragmentation of the dense lens material. Great care was taken not to violate the posterior capsule. The silicone-tipped I and A instrument was used to remove the cortex and buff off any remaining cataractous material from the posterior capsule. The capsular bag was then reformed with Discovisc and the following Intraocular lens implant Implant Name Type Inv. Item Serial No. Coin Wrapping Machine Operator Lot No. LRB No. Used Action Model No. [id number] [employer] - [id number] Intraocular Lens [id number] [employer] [id number] [employer] Right 1 Implanted [id number] was inserted through the lips of the wound into the capsular bag. Using the I and A instrument, the Discovisc was removed from the anterior chamber and capsular bag, and the implant was centered. Cefuroxime 1mg in 0.1 mL normal saline was introduced into the anterior chamber through the clear corneal incision using a 30 gauge cannula. The wound was checked and found to be watertight. At the end of the procedure, the cornea was clear, the anterior chamber was deep and clear, the pupil was round, the implant was centered within the capsular bag, and the posterior capsule was intact. The eyelid speculum was removed and prednisolone acetate 1% and timolol 0.5% eye drops were administered. A shield was affixed over the eye and the patient was sent to the recovery room, leaving the operating room in excellent condition. ESTIMATED BLOOD LOSS: <1mL SPECIMEN: None FINDINGS: Age-related cataract COMPLICATIONS: None Incision/Procedure Start Time: 11:22 AM Incision Close/Procedure End Time: 11:32 AM - [facility] Audelia KIRKPATRICK MD [facility] 04-02-2023 [facility] Telephone (OPHTLN) MCKENZIE MADRIGAL ([id number]) 1940 M Date Time Provider Department 04/02/23 AUDELIA KIRKPATRICK V OPHTLGracie During your visit today, we recorded the following information about you: iJmena Kumar 04/02/2023 12:04 PM Signed Staff member from Dr Hummel office [facility] re: post op cataract patient was seen and Dr Hummel was requesting 2nd eye surgery cataract surgery be moved to earlier date due to post op prism of -4.00 Dr Hummel office is open MW, 9-6pm [phone] I called the patient and offered to move up his 2nd eye surgery from 05/05 to 04/14. He accepted. Advised that I would contact Dr. Hummel' office with new post op dates and then call him back to let him know when those are. Dr. Hummel' office is closed today (Sunday 04/02). I did leave a message for them advising that surgery has been moved up to 04/14 and to call us back with the 1 day and 1 week post op appointment dates/times. Jimena Kumar 04/05/2023 1:18 PM Signed Received a call back from Dr. Hummel' office with post op dates to coordinate with 04/14 surgery. 1 day: 04/15 @ 2:15 1 week: 04/22 @ 12:15 Called and LVM for patient advising of post ops with Dr. Hummel. Allergies As of Date: 04/02/2023 Noted Allergy Reaction ADHESIVE 01/12/2023 2 - Rash LATEX 01/12/2023 2 - Rash MOLD EXTRACTS 01/12/2023 16 - Unknown RED DYE 12/13/2015 4 - Hives Date Reviewed: 03/31/2023 Reviewed by: Caroline Garcia, RN - Fully Assessed Reason for Visit: reschedule surgery [Other] Cmt: Sooner date Prescriptions as of 04/05/2023 - prednisoLONE acetate (PRED FORTE) 1 % ophthalmic suspension USE DIRECTED BY PHYSICIAN, IN OPERATIVE EYE, BEGINNING ONE DAY AFTER SURGERY - keTORolac (ACULAR) 0.5 % ophthalmic solution USE DIRECTED BY PHYSICIAN, IN OPERATIVE EYE, BEGINNING ONE DAY AFTER SURGERY - famotidine (PEPCID) 10 mg tablet Take 10 mg by mouth. - atenolol (TENORMIN) 50 mg tablet - simvastatin (ZOCOR) 10 mg tablet - warfarin (COUMADIN) 5 mg tablet Take 5 mg by mouth once daily. As directed - Cholecalciferol, Vitamin D3, (VITAMIN D) 1,000 unit cap Take 2,000 Units by mouth once daily. - cyanocobalamin (VITAMIN B-12) 1,000 mcg tab Take 500 mcg by mouth once daily. 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] 09/10/2021 Primary hypertension [I10] 03/23/2023 Mixed hyperlipidemia [E78.2] 03/23/2023 Gastroesophageal reflux disease without esophag*03/23/2023 Malignant tumor of urinary bladder (HCC) [C67.9]03/23/2023 History of pulmonary embolus (PE) [Z86.711] 03/23/2023 Encounter Status:Closed by JIMENA KUMAR on 04/02/23 Normal [facility] ANES POSTPROC EVALon 024 ANES POSTPROC EVAL HNO ID: [id number] Author: FEDERICO KING II, DO Service: Anesthesiology Author Type: Anesthesiologist Type: Anesthesia Postprocedure Evaluation Filed: 03/31/2023 15:03 Note Text: POST ANESTHESIA EVALUATION NOTE : 1940 Procedure Summary Date: 03/31/23 Room / Location: [address] Anesthesia Start: 919 Anesthesia Stop: 935 Procedures: PHACOEMULSIFICATION CATARACT IMPLANT INTRAOCULAR LENS W/O ENDOSCOPIC CYCLOPHOTOCOAGULATION (Left: Eye) OPHTHALMIC BIOMETRY BY PARTIAL COHERENCE INTERFEROMETRY W/INTRAOCULAR LENS POWER CALCULATION (Left: Eye) Diagnosis: Combined forms of age-related cataract of both eyes (Combined forms of age-related cataract of both eyes [H25.813]) Surgeons: Audelia Kirkpatrick V, MD Responsible Provider: Federico King II, DO Anesthesia Type: MAC ASA Status: 3 Anesthesia Type: MAC Last Vitals Vitals Value Taken Time BP 141/63 03/31/23 0948 Temp 36.6 ?C (97.9 ?F) 03/31/23 0938 HR SpO2 61 03/31/23 0948 Resp 16 03/31/23 0948 SpO2 98 % 03/31/23 0948 Post Anesthesia Patient Status Patient Evaluation: PACU. PACU/ICU Patient Condition: stable. Neurological Status: aware and responsive. Pulmonary Status: breathing comfortably on room air Airway Control: returned to baseline unsupported. Cardiovascular Status: stable. Pain Management: clinically adequate Postoperative Hydration: acceptable. Intraoperative Events: no significant anesthesia events Post Operative Nausea/Vomiting Status: no significant post operative nausea or vomiting Recommendation: continue current plan of care. Anesthesia Observations No Documentation SIGNATURE: Federico King II, DO PATIENT NAME: Mckenzie Madrigal DATE: March 31, 2023 TIME: 3:03 PM CSN: [id number] [facility] ANES PRE-OPon 03-31-2023 ANES PRE-OP HNO ID: [id number] Author: GHANSHYAM COOK MD Service: Anesthesiology Author Type: Anesthesiologist Type: Anesthesia Preprocedure Evaluation Filed: 03/31/2023 08:28 Note Text: ANESTHESIOLOGY DAY OF SURGERY NOTE : 1940 Procedure Information Date/Time: 03/31/23 0910 Procedures: PHACOEMULSIFICATION CATARACT IMPLANT INTRAOCULAR LENS W/O ENDOSCOPIC CYCLOPHOTOCOAGULATION (Left: Eye) OPHTHALMIC BIOMETRY BY PARTIAL COHERENCE INTERFEROMETRY W/INTRAOCULAR LENS POWER CALCULATION (Left: Eye) Location: [address] Surgeons: Audelia Kirkpatrick V, MD Estimated body mass index is 22.75 kg/m? as calculated from the following: Height as of 03/23/23: 180.3 cm (5' 11 ). Weight as of 03/23/23: 74 kg (163 lb 2.3 oz). Most recent hematocrit and potassium results: No results found for this basename: HCT,HEMATOCRIT,K,POTASS IUM Relevant Problems CARDIO (+) Primary hypertension GI (+) Gastroesophageal reflux disease without esophagitis NEURO-PSYCH (+) History of bladder cancer (+) History of pulmonary embolus (PE) I - PHYSICAL EVALUATION AIRWAY Patient intubated: No. Tracheostomy tube not present Mallampati: II. TM distance: >3 FB. Neck ROM: full ROM without neurological symptoms. Mouth opening: adequate. DENTAL Dental findings: poor dentition. Additional exam findings: no II - ANESTHESIA PLAN ASA Score: 3 Anesthetic Plan: MAC NPO Status: adequate Beta Dejon Monitoring Plan Monitoring plan: standard ASA. Post Procedure Analgesic Plan Postoperative analgesic plan: parenteral or oral opioids and multimodal analgesia. Patient / Surrogate agrees to blood products: blood products not planned Significant changes in the patient condition since the History and Physical, not otherwise documented in primary service progress note: no. No vitals data found for the desired time range. Facility-Administered Medications as of 03/31/2023 Medication Dose Route Frequency - NaCl 0.9% iv infusion 30 mL/hr INTRAVENOUS CONTINUOUS - lidocaine HCl (PF) 40 mg/mL 2 mg injection (XYLOCAINE) 0.05 mL LEFT EYE EVERY 5 MINUTES X 3 DOSES - PHENYLephrine 2.5 % 1 Drop (AK-DILATE, JAY-SYNEPHRINE) 1 Drop LEFT EYE EVERY 5 MINUTES X 3 DOSES - tropicamide 1 % 1 Drop (MYDRIACYL) 1 Drop LEFT EYE EVERY 5 MINUTES X 3 DOSES - cyclopentolate 1 % 1 Drop (CYCLOGYL) 1 Drop LEFT EYE Pre-Op PRN - keTORolac 0.5 % 1 Drop (ACULAR) 1 Drop LEFT EYE q 5 MIN - Povidone-Iodine 5 % 30 mL ophth soln (BETADINE) 30 mL LEFT EYE ONCE - balanced salts 15 mL (BSS) 15 mL LEFT EYE ONCE Outpatient Medications as of 03/31/2023 Medication Sig - famotidine (PEPCID) 10 mg tablet Take 10 mg by mouth. - atenolol (TENORMIN) 50 mg tablet - simvastatin (ZOCOR) 10 mg tablet - warfarin (COUMADIN) 5 mg tablet Take 5 mg by mouth once daily. As directed - Cholecalciferol, Vitamin D3, (VITAMIN D) 1,000 unit cap Take 2,000 Units by mouth once daily. - cyanocobalamin (VITAMIN B-12) 1,000 mcg tab Take 500 mcg by mouth once daily. - prednisoLONE acetate (PRED FORTE) 1 % ophthalmic suspension USE DIRECTED BY PHYSICIAN, IN OPERATIVE EYE, BEGINNING ONE DAY AFTER SURGERY - keTORolac (ACULAR) 0.5 % ophthalmic solution USE DIRECTED BY PHYSICIAN, IN OPERATIVE EYE, BEGINNING ONE DAY AFTER SURGERY I have interviewed and examined the patient. I have reviewed the medical record and/or the pre-anesthesia evaluation, pertinent labs, and test results. This contains updated information obtained within 48 hours of Surgery/Procedure. SIGNATURE: Ghanshyam Cook MD PATIENT NAME: Mckenzie Madrigal DATE: March 31, 2023 TIME: 8:27 AM CSN: [id number] [facility] NURSING PROGon 03-31-2023 NURSING PROG HNO ID: [id number] Author: CAROLINE GARCIA RN Service: ? Author Type: Registered Nurse Type: Nursing Progress Note Filed: 03/31/2023 09:49 Note Text: POST OP LEARNING RESPONSE INSTRUCTION PROVIDED TO: Patient and Spouse METHOD OF INSTRUCTION: Written instruction - handouts Verbal instruction PATIENT / FAMILY RESPONSE: Verbalizes understanding of: INFECTION MANAGEMENT-Signs and symptoms of an infection and importance of contacting the physician PAIN MANAGEMENT-Effective strategies to manage pain in addition to pain medication PHYSICAL RESTRICTIONS-Physical restrictions and recommendations after discharge from the hospital POST-OPERATIVE INSTRUCTIONS-Correct actions to take to reduce postoperative complications WORSENING CONDITION-Signs and symptoms of a worsening condition that warrant a call to the physician FOLLOW-UP PLAN: Patient instructed to call with any further issues SUPPLEMENTAL MATERIAL: Post op discharge instructions Post sedation instructions given REFERRAL (RECOMMENDATION): None Electronically Signed By: Caroline Garcia RN In Department: AMBULATORY SURGERY [facility] OPERATIVE NOon 03-31-2023 OPERATIVE NO HNO ID: [id number] Author: AUDELIA KIRKPATRICK MD Service: Ophthalmology Author Type: Physician Type: Operative Report Filed: 03/31/2023 09:36 Note Text: OPERATIVE REPORT DATE OF SERVICE: March 31, 2023 PRIMARY SURGEON: Audelia Kirkpatrick M.D. FOOTWEAR FACTORY WORKER: None [Any nurse listed as assisting or otherwise participating in this patient's care in the operating room has solely performed the duties of a circulating nurse.] Procedure(s) (LRB): PHACOEMULSIFICATION CATARACT IMPLANT INTRAOCULAR LENS W/O ENDOSCOPIC CYCLOPHOTOCOAGULATION (Left) OPHTHALMIC BIOMETRY BY PARTIAL COHERENCE INTERFEROMETRY W/INTRAOCULAR LENS POWER CALCULATION (Left) ANESTHESIA: Topical with monitored anesthesia care. PREOPERATIVE DIAGNOSIS: Combined cataract POSTOPERATIVE DIAGNOSIS: Combined cataract, presbyopia OPERATIVE INDICATIONS: BAT 20/60 OPERATIVE PROCEDURE: The patient was admitted to the operating suite where an IV and BP, EKG, and O2 monitors were placed. The operative eye was pretreated with 2.5% tropicamide and 1% phenylephrine eye drops. The operative eye was confirmed and marked. The intended Intraocular lens model and power circled on the patient's source document was confirmed to match the intraocular lens model and power selected from the Intraocular lens consignment, in accordance with hospital intraocular lens verification policy. Nasal oxygen was administered. With the patient in the supine position, topical lidocaine 4% was placed in the eye. The patient was then prepped and draped in the usual sterile fashion for intraocular surgery. After a time-out confirming correct patient using two unique identifiers, correct eye, correct operation, presence of allergies, correct implant, and implant sterility date, an eyelid speculum was placed. Under the operating microscope a beveled clear corneal incision was created temporally with a [place] blade then a 2.4 mm keratome. The anterior chamber was reformed with Viscoat, after which the anterior capsule was opened centrally. Using the Utrata forceps a continuous curvilinear capsulorrhexis of approximately 5.5 mm round was created. Gentle hydrodissection was accomplished using preservative-free lidocaine on a 27-gauge cannula. Using the Larry phacoemulsification unit with the Vidmind curved tip, the anterior chamber was entered and the nucleus was removed while it was in the bag. The epinuclear ring was dissected into several segments, then removed using the phacoemulsification unit set to the desired aspiration flow rate and ultrasound parameters. It was necessary to use chopper forceps at various intervals to aid in the fragmentation of the dense lens material. Great care was taken not to violate the posterior capsule. The silicone-tipped I and A instrument was used to remove the cortex and buff off any remaining cataractous material from the posterior capsule. The capsular bag was then reformed with Discovisc and the following Intraocular lens implant Implant Name Type Inv. Item Serial No. Coin Wrapping Machine Operator Lot No. LRB No. Used Action Model No. [id number] [employer] - [id number] Intraocular Lens [id number] [employer] [id number] [employer] Left 1 Implanted [id number] was inserted through the lips of the wound into the capsular bag. Using the I and A instrument, the Discovisc was removed from the anterior chamber and capsular bag, and the implant was centered. Cefuroxime 1mg in 0.1 mL normal saline was introduced into the anterior chamber through the clear corneal incision using a 30 gauge cannula. The wound was checked and found to be watertight. At the end of the procedure, the cornea was clear, the anterior chamber was deep and clear, the pupil was round, the implant was centered within the capsular bag, and the posterior capsule was intact. The eyelid speculum was removed and prednisolone acetate 1% and timolol 0.5% eye drops were administered. A shield was affixed over the eye and the patient was sent to the recovery room, leaving the operating room in excellent condition. ESTIMATED BLOOD LOSS: <1mL SPECIMEN: None FINDINGS: Age-related cataract COMPLICATIONS: None Incision/Procedure Start Time: 9:25 AM Incision Close/Procedure End Time: 9:34 AM - Comanage with Dr Hummel; [facility] POD #1 Audelia KIRKPATRICK MD [facility] HISTORY PHYSICALon HISTORY PHYSICAL HNO ID: [id number] Author: GREGG ACEVES APRN.CNP Service: ? Author Type: Nurse Practitioner Type: H&P Filed: 03/23/2023 08:08 Note Text: HISTORY AND PHYSICAL EXAMINATION SERVICE DATE: 03/22/2023 SERVICE TIME: 7:36 AM PRIMARY CARE PHYSICIAN: Polina Olivia MD REASON FOR VISIT: Mckenzie Madrigal is a 82 year old male who is scheduled for Bilateral Cataracts at the request of Dr. Audelia Kirkpatrick V for consultation. My final recommendation will be communicated back to the requesting physician by way of shared medical record or letter. The patient has the following: ACTIVE PROBLEM LIST Hypercoagulable State (Hcc) History of Bladder Cancer Other Primary Thrombophilia (Hcc) Primary Hypertension Mixed Hyperlipidemia Gastroesophageal Reflux Disease Without Esophagitis Malignant Tumor of Urinary Bladder (Hcc) History of Pulmonary Embolus (Pe) Subjective CHIEF COMPLAINT: Visual Changes HPI: 82 year old male presents today with complaints of difficulty with vision for 6 months. Found to have cataract on exam. Denies pain. No relieving factors. PAST MEDICAL HISTORY Diagnosis Date Arthritis left shoulder Colon polyps Enlarged prostate GERD (gastroesophageal reflux disease) High cholesterol History of shingles Hypercoagulable state (HCC) Pulmonary embolism (HCC) Subarachnoid hemorrhage (HCC) PAST SURGICAL HISTORY Procedure Laterality Date ADENOIDECTOMY PRIMARY COLONSCOPY SCREENING HIGH RISK PAST SURGICAL HISTORY OF Cyst removal from foot PAST SURGICAL HISTORY OF TURP PROSTATE SURGERY HX 09/05/2013 FAMILY HISTORY Problem Relation Age of Onset Cataract Mother Heart Father at age 54 Amblyopia Other Strabismus Other Glaucoma No Family History Detached Retina No Family History Macular Degen No Family History Blindness No Family History Cancer No Family History Diabetes No Family History Anesthesia Problems No Family History SOCIAL HISTORY: Social History Tobacco Use Smoking status: Former Smokeless tobacco: Never Substance Use Topics Alcohol use: Yes Comment: drink beer once a month Drug use: No Prior to Admission medications as of 03/23/23 0737 Medication Sig Last Dose Taking famotidine (PEPCID) 10 mg tablet Take 10 mg by mouth. Taking Yes atenolol (TENORMIN) 50 mg tablet Taking Yes simvastatin (ZOCOR) 10 mg tablet Taking Yes warfarin (COUMADIN) 5 mg tablet Take 5 mg by mouth once daily. As directed Taking Yes Cholecalciferol, Vitamin D3, (VITAMIN D) 1,000 unit cap Take 2,000 Units by mouth once daily. Taking Yes cyanocobalamin (VITAMIN B-12) 1,000 mcg tab Take 500 mcg by mouth once daily. Taking Yes No medication comments found. ALLERGIES Allergen Reactions Adhesive Rash Latex Rash Mold Extracts Unknown Red Dye Hives REVIEW OF SYSTEMS: PAIN ASSESSMENT: General: No weight loss, malaise or fevers. 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 No neurological symptoms or problems. Respiratory: No history of current cough or dyspnea, or pneumonia in the past 6 weeks. No history of respiratory/pulmonary symptoms or problems. Cardiovascular: Negative for Recent MO, Angina, Arrhythmia, CAD, Chest Pain, CHF + PE + HTN + HLD GI: No history of GI symptoms or problems. No history of esophageal varices, recent ascites, or ETOH greater than 2 drinks per day. + GERD : No history of dysuria, frequency or incontinence,, stones or chronic kidney disease Endocrine: No history of diabetes. Has not taken steroids within the past 30 days. No history of endocrinological symptoms or problems. Hematology: Easy bruising / bleeding, Bleeding / clotting disorders (Thrombophilia), Chronic anti-coagulation / platelet meds (Coumadin) Oncology: H/O Bladder cancer Psych: No history of psychiatric symptoms or problems. Musculoskeletal: Negative for joint pain or swelling, back pain or muscle pain. Skin: Negative for lesions, rash and itching. Objective PHYSICAL EXAM: VITALS: BP 138/69 Pulse 64 Temp (Src) 97.6 (Temporal) Resp 16 Ht 5' 11 (1.80m) Wt 163 lb 2.3 oz (74.0kg) SpO2 100% BMI 22.76 kg/(m2). General: Alert and oriented, No acute distress Skin: Normal color, no rash, no lesions. HEENT: EOM, pupils equal, round and reactive. Cardiovascular: Normal S1 AND S2, no rubs, murmurs or gallops. No JVD. Pulse regular. Lungs: Normal breath sounds, no wheezes or crackles. Extremities: No deformity, no edema or tenderness, no joint swelling or clubbing. Neurological: Normal cognition and motor skills. Pulses: Carotid and radial pulses normal +2. Diagnostic tests reviewed for today's visit: No new labs or tests Assessment/Plan Primary hypertension Assessment: Stable and compliant with medications Followed by PCP Last 5 Encounter BP Readings: Date: BP: 03/23/2023 138/69 12/11/2016 125/76 12/13/2015 134/ (more content not included)... Normal [facility] Lab Reportson 03-18-2023 Lab Reports [id number] IFF Normal [facility] Consultation Noteon 02-16-20 Consultation Note [id number] IFF Normal [facility] Consultation Noteon 01-19-20 Consultation Note [id number] IFF Normal [facility] Ambulatory Visit Summaryon 1 Ambulatory Visit Summary MCKENZIE MADRIGAL :1940 Visit Date:12/16/2022 Ambulatory Visit Instructions Your Diagnosis Annual visit for general adult medical examination without abnormal findings Pulmonary embolism Benign paroxysmal positional vertigo Anticoagulated Gastroesophageal reflux disease without esophagitis Mixed hyperlipidemia Primary hypertension BPH with urinary obstruction Your Care Team Attending Physician - Polina Olivia MD Primary Care Physician - Polina Olivia MD This Is Your Medications List atenolol (atenolol 50 mg Tab) cholecalciferol (Vitamin D3) cyanocobalamin (Vitamin B12) docusate (docusate sodium 100 mg Cap) famotidine (famotidine 10 mg oral tablet) simvastatin (Zocor) warfarin Procedures Performed Transurethral resection of prostate (10/03/2013), Cystoscopy (07/21/2012), Transrectal biopsy of prostate using ultrasound (US) guidance (01/20/2002). Discharge Vitals Heart Rate (Peripheral) 56 Blood Pressure 106/60 Height 172 cm Height 68 in Weight 73 kg Weight 160.6 lb BMI 24.68 What to do next Scheduled Follow-Up Appointments Wednesday 9:30 AM EDT Where: [facility] Dwight Normal [facility] Office/Clini c Noteon 12-16-2022 Family Medicine Office/Clinic Note Chief Complaint Subsequent Medicare Wellness Visit Review of Systems PHQ Score Initial Depression Screen Score: 0 Physical Exam Vitals & Measurements HR: 56(Peripheral) BP: 106/60 SpO2: 99% HT: 172 cm HT: 68 in WT: 73 kg WT: 160.6 lb BMI: 24.68 Assessment/Plan 1. Annual visit for general adult medical examination without abnormal findings (Z00.00: Encounter for general adult medical examination without abnormal findings) The patient was given a customized and personalized print out of all the current AHRQ USPSTF?s recommendations for preventative services and all current CDC recommended immunizations, relevant risk recommendations and the following patient brochures were given. Reviewed Medicare preventative services checklist. CDC-Falls Prevention and home safety screening reviewed. Patient denies any falls in last 12 months, voices no worry about falling, exhibits no problems with sitting, standing, or ambulation. Pt voices understanding with keeping walk way area free of clutter to prevent tripping and/or falling. [place] Advance Directives reviewed, patient has copy at home, encouraged to bring copy to office for scanning to chart. Patient denies any problems with ADL?s and Instrumental ADL?s. Cognitive screening completed with memory and clock face drawing, no deficits noted. Immunization Record reviewed with the patient. Discussed Shingrix vaccine with educational handout and availability. COVID vaccines have been administered, immunization record is up to date. Allergies and medications reviewed and up to date. Patient denies concerns with taking medication as prescribed, reviewed OTC medications with patient, medication list up to date. Blood tests were reviewed: are up to date at this time. Colonoscopy, no longer screened. Reviewed pain symptoms with patient: no pain symptoms reported. Reviewed all outside providers that patient follows. Last visit summary notes available in chart and/or have been requested. Follow up scheduled, follow up as needed AWV has been scheduled, 12/20/2023 Medicare provides yearly screening for alcohol and depression concerns. This is completed during our Medicare Wellness visit for those who do not have a current diagnosis of depression or concerns with alcohol use. I spent a total of 17 minutes on this date of service which included preparing to see the patient, face to face patient care, completing clinical documentation, obtaining and/or reviewing separately obtained history, counseling and educating the patient with handouts. Explanations were provided with reviewing questionnaires. AUDIT risk assessment screening completed, risk score 1, with patient denying concerns with use. Completed PHQ-2 risk assessment for depression with risk score 0, negative findings. Patient has been reminded to notify the provider if there would be a change or concerns with symptoms with fear, unable to sleep, worrying too much or feeling down and/or sad with lost of interest with daily activities. Will continue to monitor with screening yearly during Medicare wellness visits. 2. Pulmonary embolism (I26.99: Other pulmonary embolism without acute cor pulmonale) Patient with history of PE. Denies SOB or chest discomfort. Patient is aware of symptoms to monitor for. Patient is taking warfarin as prescribed (see below #3.) SPO2 99% in office today. Patient will continue to follow up with PCP as needed. 3. Benign paroxysmal positional vertigo (H81.10: Benign paroxysmal vertigo, unspecified ear) Patient denies any issues or concerns of dizziness. States he will have symptoms if he looks up for an extended period of time, so he just avoids doing so. Patient does not take any medication at this time. Will continue to follow up with PCP as needed. 4. Anticoagulated (Z79.01: skilled nursing (current) use of anticoagulants) Patient taking warfarin as directed per [facility] Medication Management. Patient denies any unusual bleeding or bruising. Patient is aware of symptoms to monitor for. INR 3.1, HGB 14, HCT 42, on recent lab. Patient will follow up with PCP as needed. 5. Gastroesophageal reflux disease without esophagitis (K21.9: Gastro-esophageal reflux disease without esophagitis) Patient is aware of diet changes with healthier eating habits, such as not eating late at night, losing or maintaining a healthy weight. Importance of not smoking and avoiding and/or reducing alcohol intake. Avoid tight clothing around the waist line and try to avoid spicy or high acid foods. Patient taking Pepcid as directed with symptoms managed. Reviewed nutrition therapy with recommended foods to help control your symptoms. 6. Mixed hyperlipidemia (E78.2: Mixed hyperlipidemia) Reviewed healthy lifestyle with low fat diet and exercise regimen. When you are overweight our body produces more lipids. Risk also increases with family history of hyperlipidemia and with monitoring alcohol use and avoid smoking. Patient voices understanding with cami (more content not included)... Normal [facility] Comment on above: Result Comment: Elec tronically Signed By: Leelee Vance\.br\Date and Time Signed: 12/16/22 16:21 EDT\.br\Electronically Co-Signed By: Víctor Park\.br\Date and Time Co-Signed: 12/16/22 10:22 EDT Patient Educationon 12-17-19 Patient Education Caregiving Fall Prevention in the Home, Adult Falls can cause injuries and affect people of all ages. There are many simple things that you can do to make your home safe and to help prevent falls. Ask for help when making these changes, if needed. What actions can I take to prevent falls? General instructions ? Use good lighting in all rooms. Replace any light bulbs that burn out, turn on lights if it is dark, and use night-lights. ? Place frequently used items in umwj-gs-bhqli places. Lower the shelves around your home if necessary. ? Set up furniture so that there are clear paths around it. Avoid moving your furniture around. ? Remove throw rugs and other tripping hazards from the floor. ? Avoid walking on wet floors. ? Fix any uneven floor surfaces. ? Add color or contrast paint or tape to grab bars and handrails in your home. Place contrasting color strips on the first and last steps of staircases. ? When you use a stepladder, make sure that it is completely opened and that the sides and supports are firmly locked. Have someone hold the ladder while you are using it. Do not climb a closed stepladder. ? Know where your pets are when moving through your home. What can I do in the bathroom? ? Keep the floor dry. Immediately clean up any water that is on the floor. ? Remove soap buildup in the tub or shower regularly. ? Use nonskid mats or decals on the floor of the tub or shower. ? Attach bath mats securely with double-sided, nonslip rug tape. ? If you need to sit down while you are in the shower, use a plastic, nonslip stool. ? Install grab bars by the toilet and in the tub and shower. Do not use towel bars as grab bars. What can I do in the bedroom? ? Make sure that a bedside light is easy to reach. ? Do not use oversized bedding that reaches the floor. ? Have a firm chair that has side arms to use for getting dressed. What can I do in the kitchen? ? Clean up any spills right away. ? If you need to reach for something above you, use a sturdy step stool that has a grab bar. ? Keep electrical cables out of the way. ? Do not use floor kittitian or wax that makes floors slippery. If you must use wax, make sure that it is non-skid floor wax. What can I do with my stairs? ? Do not leave any items on the stairs. ? Make sure that you have a light switch at the top and the bottom of the stairs. Have them installed if you do not have them. ? Make sure that there are handrails on both sides of the stairs. Fix handrails that are broken or loose. Make sure that handrails are as long as the staircases. ? Install non-slip stair treads on all stairs in your home. ? Avoid having throw rugs at the top or bottom of stairs, or secure the rugs with carpet tape to prevent them from moving. ? Choose a carpet design that does not hide the edge of steps on the stairs. ? Check any carpeting to make sure that it is firmly attached to the stairs. Fix any carpet that is loose or worn. What can I do on the outside of my home? ? Use bright outdoor lighting. ? Regularly repair the edges of walkways and driveways and fix any cracks. ? Remove high doorway thresholds. ? Trim any shrubbery on the main path into your home. ? Regularly check that handrails are securely fastened and in good repair. Both sides of all steps should have handrails. ? Install guardrails along the edges of any raised decks or porches. ? Clear walkways of debris and clutter, including tools and rocks. ? Have leaves, snow, and ice cleared regularly. ? Use sand or salt on walkways during winter months. ? In the garage, clean up any spills right away, including grease or oil spills. What other actions can I take? ? Wear closed-toe shoes that fit well and support your feet. Wear shoes that have rubber soles or low heels. ? Use mobility aids as needed, such as canes, walkers, scooters, and crutches. ? Review your medicines with your health care provider. Some medicines can cause dizziness or changes in blood pressure, which increase your risk of falling. Talk with your health care provider about other ways that you can decrease your risk of falls. This may include working with a physical therapist or computer trainer to improve your strength, balance, and endurance. Where to find more information ? Centers for Disease Control and Prevention, STEAD[place]: www.cdc.gov ? National [place] on Aging: www.johnny.nih.gov Contact a health care provider if: ? You are afraid of falling at home. ? You feel weak, drowsy, or dizzy at home. ? You fall at home. Summary ? There are many simple things that you can do to make your home safe and to help prevent falls. ? Ways to make your home safe include removing tripping hazards and installing grab bars in the bathroom. ? Ask for help when making these changes in your home. This information is not intended to replace advice given to you by your health ca (more content not included)... Normal [facility] Screenson 12-16-2022 Screens [id number] TIFF Normal [facility] Consultation Noteon 12-15-19 Consultation Note [id number] IFF [facility] Consultation Noteon 11-19-19 Consultation Note [id number] D:127 [facility] Ambulatory Visit Summaryon 0 10-29-2022 Ambulatory Visit Summary MCKENZIE MADRIGAL :1940 Visit Date:10/29/2022 Ambulatory Visit Instructions Your Diagnosis Pulmonary embolism, unspecified chronicity, unspecified pulmonary embolism type, unspecified whether acute cor pulmonale present Primary hypertension Mixed hyperlipidemia Gastroesophageal reflux disease without esophagitis Personal history of bladder cancer Anemia BMI 22.0-22.9, adult Your Care Team Attending Physician - Polina Olivia MD Primary Care Physician - Polina Olivia MD This Is Your Medications List atenolol (atenolol 50 mg Tab) cholecalciferol (Vitamin D3) cyanocobalamin (Vitamin B12) docusate (docusate sodium 100 mg Cap) famotidine (famotidine 10 mg oral tablet) simvastatin (Zocor) warfarin Procedures Performed Transurethral resection of prostate (10/03/2013), Cystoscopy (07/21/2012), Transrectal biopsy of prostate using ultrasound (US) guidance (01/20/2002). 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 -No other issues at this time Review of Systems PHQ Score Initial Depression Screen Score: 0 Physical Exam Vitals & Measurements T: 36.7 ?C(Oral) HR: 58(Peripheral) RR: 14 BP: 128/84 SpO2: 97% HT: 71 in HT: 180.34 cm WT: 73.7 kg WT: 162.14 lb BMI: 22.66 General: alert, no acute distress ENMT: oral mucosa moist, Cardiovascular: regular rate and rhythm, normal peripheral perfusion Respiratory: Lungs CTA, respirations non labored Extremities: no deformity, no trauma Neurological: oriented x 4, LOC appropriate for age, CN II-XII intact, motor strength equal & normal bilaterally, speech normal Abdomen: Soft, Nontender, Non-distended, + BS Assessment/Plan 1. Pulmonary embolism, unspecified chronicity, unspecified pulmonary embolism type, unspecified whether acute cor pulmonale present (I26.99: Other pulmonary embolism without acute cor pulmonale) Continue-on Coumadin as before. Patient states he had had 3 clots and that is why he is on consistent Coumadin. We will continue to monitor 2. Primary hypertension (I10: Essential (primary) hypertension) Unsure if this is hypertension versus tachycardia that the patient is on the beta-dejon for. At goal at this time 3. Mixed hyperlipidemia (E78.2: Mixed hyperlipidemia) Continue on a statin Reviewed lab work and cholesterol is in good position 4. Gastroesophageal reflux disease without esophagitis (K21.9: Gastro-esophageal reflux disease without esophagitis) Continue on H2 dejon 5. Personal history of bladder cancer (Z85.51: Personal history of malignant neoplasm of bladder) Resolved but follows with urology 6. Anemia (D64.9: Anemia, unspecified) No issues at this time Follow-up No qualifying data available Problem List/Past Medical History Ongoing Anemia Anticoagulated Asymptomatic microscopic hematuria Benign paroxysmal positional vertigo BMI 21.0-21.9, adult BPH with urinary obstruction Elevated PSA Former smoker Frequent urination Gastroesophageal reflux disease without esophagitis Hiatal hernia Hx of assisted use of blood thinners Microhematuria Mixed hyperlipidemia Personal history of bladder cancer Primary hypertension Pulmonary embolism Historical Weak urine stream Procedure/Surgical History Transurethral resection of prostate (10/03/2013), Cystoscopy (07/21/2012), Transrectal biopsy of prostate using ultrasound (US) guidance (01/20/2002). Medications atenolol 50 mg Tab, 50 mg= 1 tab(s), Oral, Daily docusate sodium 100 mg Cap, 100 mg= 1 cap(s), Oral, Daily, PRN famotidine 10 mg oral tablet, 10 mg= 1 tab(s), Oral, Daily Vitamin B12, 500 mcg, Oral, Daily Vitamin D3, See Instructions warfarin, See Instructions Zocor, 10 mg, Oral, Once a day (at bedtime) Allergies Adhesive Bandage (Red) Red Dye (Swelling, Hives) Social History Alcohol - Low Risk, 11/17/2018 Tobacco Former smoker, quit more than 30 days ago Tobacco Use:. Never Smokeless Tobacco Use:. Cigarettes, 10/29/2022 Family History Acute myocardial infarction: Father. TB - Pulmonary tuberculosis: Father. Immunizations Vaccine Date Status Comments SARS-CoV-2 (COVID-19) [id number] 01/20/2022 Recorded influenza virus vaccine, inactivated 12/08/2021 Recorded SARSCoV2 mRNA(ogqdseuvr-fyou-paf ros) vac 08/21/2021 Recorded influenza virus vaccine, inactivated 12/20/2020 Recorded SARS-CoV-2 (COVID-19) mRNA BNT-162b2 vax 12/04/2020 Recorded 2022-08-04: [id number] SARS-CoV-2 (COVID-19) mRNA BNT-162b2 vax 2020 Recorded SARS-CoV-2 (COVID-19) mRNA BNT-162b2 vax 04/01/2020 Recorded influenza virus vaccine, inactivated 12/22/2018 Recorded influenza virus vaccine, live, trivalent 06/06/2018 Recorded pneumococcal 13-valent vaccine 05/25/2018 Recorded diphtheria/pertussis, acel/tetanus adult 04/09/2018 Recorded influenza virus vaccine, inactivated 12/14/2017 Recorded influenza virus vaccine, inactivated 12/14/2016 Recorded influenza virus vaccine, inactivated 12/27/2015 Recorded influenza virus vaccine, inactivated 12/19/2014 Recorded influenza virus vaccine, inactivated 01/11/2014 Recorded influenza virus vaccine, inactivated 01/13/2013 Recorded hepatitis A-hepatitis B vaccine 01/24/2009 Recorded T (more content not included)... Normal [facility] Comment on above: Result Comment: Elec tronically Signed By: John HOWARD, Polina Garcia.br\Date and Time Signed: 10/29/22 11:24 EDT Lab Reportson 08-18-2022 Lab Reports [id number] D:127 Normal [facility] Lab Reports [id number] D:127 [facility] Physician Referralon 023 Physician Referral [id number] CD:127 Normal [facility] PROTIMEon 07-21-2022 INR Coag (PPP) [Relative time] 1.90 {INR} Normal [facility] Comment on above: Performed By: #### L IPID, CMP #### [facility] [address] [place] [address] Dr. Carmen Alvarado INR GUIDELINES SEE BELOW Normal [facility] Comment on above: Result Comment: JUANJO RED INR: 2.0 - 3.0 CONDITIONS NOT LISTED BELOW 2.5 - 3.5 FOR PROSTHETIC HEART VALVE REPLACEMENT 2.5 - 3.5 RECURRENT THROMBOSIS Performed By: #### L IPID, CMP #### [facility] [address] [place] [address] Dr. Carmen Alvarado PT Coag (PPP) [Time] 19.4 s Critically high 9.0-11.6 [facility] Comment on above: Performed By: #### L IPID, CMP #### [facility] [address] [place] [address] Dr. Carmen Alvarado PROTIMEon 06-16-2022 INR Coag (PPP) [Relative time] 2.53 {INR} Normal [facility] Comment on above: Performed By: #### P T #### [facility] [address] [place] [address] Dr. Carmen Alvarado INR GUIDELINES SEE BELOW Normal [facility] Comment on above: Result Comment: JUANJO RED INR: 2.0 - 3.0 CONDITIONS NOT LISTED BELOW 2.5 - 3.5 FOR PROSTHETIC HEART VALVE REPLACEMENT 2.5 - 3.5 RECURRENT THROMBOSIS Performed By: #### P T #### [facility] [address] [place] [address] Dr. Carmen Alvarado PT Coag (PPP) [Time] 25.4 s Critically high 9.0-11.6 [facility] Comment on above: Performed By: #### P T #### [facility] [address] [place] [address] Dr. Carmen Alvarado PROTIMEon 05-19-2022 INR Coag (PPP) [Relative time] 2.26 {INR} Normal [facility] Comment on above: Performed By: #### L IPID, CMP #### [facility] [address] [place] [address] Dr. Carmen Alvarado INR GUIDELINES SEE BELOW Normal [facility] Comment on above: Result Comment: JUANJO RED INR: 2.0 - 3.0 CONDITIONS NOT LISTED BELOW 2.5 - 3.5 FOR PROSTHETIC HEART VALVE REPLACEMENT 2.5 - 3.5 RECURRENT THROMBOSIS Performed By: #### L IPID, CMP #### [facility] [address] [place] [address] Dr. Carmen Alvarado PT Coag (PPP) [Time] 22.9 s Critically high 9.0-11.6 [facility] Comment on above: Performed By: #### L IPID, CMP #### [facility] [address] [place] [address] Dr. Carmen Alvarado PROTIMEon 04-20-2022 INR Coag (PPP) [Relative time] 2.33 {INR} Normal [facility] Comment on above: Performed By: #### L IPID, CMP #### [facility] [address] [place] [address] Dr. Carmen Alvarado INR GUIDELINES SEE BELOW Normal [facility] Comment on above: Result Comment: JUANJO RED INR: 2.0 - 3.0 CONDITIONS NOT LISTED BELOW 2.5 - 3.5 FOR PROSTHETIC HEART VALVE REPLACEMENT 2.5 - 3.5 RECURRENT THROMBOSIS Performed By: #### L IPID, CMP #### [facility] [address] [place] [address] Dr. Carmen Alvarado PT Coag (PPP) [Time] 23.5 s Critically high 9.0-11.6 [facility] Comment on above: Performed By: #### L IPID, CMP #### [facility] [address] [place] [address] Dr. Carmen Alvarado PROTIMEon 03-24-2022 INR Coag (PPP) [Relative time] 2.67 {INR} Normal [facility] Comment on above: Performed By: #### P T #### [facility] [address] [place] [address] Dr. Carmen Alvarado INR GUIDELINES SEE BELOW Normal [facility] Comment on above: Result Comment: JUANJO RED INR: 2.0 - 3.0 CONDITIONS NOT LISTED BELOW 2.5 - 3.5 FOR PROSTHETIC HEART VALVE REPLACEMENT 2.5 - 3.5 RECURRENT THROMBOSIS Performed By: #### P T #### [facility] [address] [place] [address] Dr. Carmen Alvarado PT Coag (PPP) [Time] 26.8 s Critically high 9.0-11.6 [facility] Comment on above: Performed By: #### P T #### [facility] [address] [place] [address] Dr. Carmen Alvarado CBC AUTO DIFFon 03-10-2022 BASO # 0.0 103/ul Normal 0.0-0.1 [facility] Comment on above: Performed By: #### C BC #### [facility] [address] [place] [address] Dr. Carmen Alvarado Basophils/100 WBC (Bld) 0.2 % Normal 0.2-2.0 [facility] Comment on above: Performed By: #### C BC #### [facility] [address] [place] [address] Dr. Caremn Alvarado EO # 0.2 103/ul Normal 0.0-0.7 [facility] Comment on above: Performed By: #### C BC #### [facility] [address] [place] [address] Dr. Carmen Alvarado Eosinophils/100 WBC (Bld) 3.1 % Normal 0.9-7.0 [facility] Comment on above: Performed By: #### C BC #### [facility] [address] [place] [address] Dr. Carmen Alvarado Erythrocyte distribution width (RBC) [Ratio] 12.7 % Normal 11.0-15.0 [facility] Comment on above: Performed By: #### C BC #### [facility] [address] [place] [address] Dr. Carmen Alvarado Hematocrit (Bld) [Volume fraction] 41.2 % Critically low 42.0-54.0 [facility] Comment on above: Performed By: #### C BC #### [facility] [address] [place] [address] Dr. Carmen Alvarado Hemoglobin (Bld) [Mass/Vol] 13.6 g/dL Critically low 14.0-18.0 [facility] Comment on above: Performed By: #### C BC #### [facility] [address] [place] [address] Dr. Carmen Alvarado IG # 0.01 10e3/ul Normal 0.00-0.03 [facility] Comment on above: Performed By: #### C BC #### [facility] [address] [place] [address] Dr. Carmen Alvarado IG % 0.2 % Normal 0.0-0.5 [facility] Comment on above: Performed By: #### C BC #### [facility] [address] [place] [address] Dr. Carmen Alvarado LYMPH # 1.2 103/ul Normal 1.2-3.8 [facility] Comment on above: Performed By: #### C BC #### [facility] [address] [place] [address] Dr. Carmen Alvarado Lymphocytes/100 WBC (Bld) 21.5 % Normal 20.5-60.0 [facility] Comment on above: Performed By: #### C BC #### [facility] [address] [place] [address] Dr. Carmen Alvarado MANUAL DIFF REQ NO Normal [facility] Comment on above: Performed By: #### C BC #### [facility] [address] [place] [address] Dr. Carmen Alvarado MCH (RBC) [Entitic mass] 32.9 pg Normal 25.9-34.0 [facility] Comment on above: Performed By: #### C BC #### [facility] [address] [place] [address] Dr. Carmen Alvarado MCHC (RBC) [Mass/Vol] 33.0 g/dL Normal 29.9-35.2 [facility] Comment on above: Performed By: #### C BC #### [facility] [address] [place] [address] Dr. Carmen Alvarado MCV (RBC) [Entitic vol] 99.5 fL Critically high 80.0-94.0 [facility] Comment on above: Performed By: #### C BC #### [facility] [address] [place] [address] Dr. Carmen Alvarado MONO # 0.5 103/ul Normal 0.3-0.8 [facility] Comment on above: Performed By: #### C BC #### [facility] [address] [place] [address] Dr. Carmen Alvarado Monocytes/100 WBC (Bld) 9.8 % Normal 1.7-12.0 [facility] Comment on above: Performed By: #### C BC #### [facility] [address] [place] [address] Dr. Carmen Alvarado NEUT # 3.5 103/ul Normal 1.4-6.5 [facility] Comment on above: Performed By: #### C BC #### [facility] [address] [place] [address] Dr. Carmen Alvarado Neutrophils/100 WBC (Bld) 65.2 % Normal 43.0-75.0 [facility] Comment on above: Performed By: #### C BC #### [facility] [address] [place] [address] Dr. Carmen Alvarado Platelet mean volume (Bld) [Entitic vol] 8.3 fL Critically low 9.5-13.5 [facility] Comment on above: Performed By: #### C BC #### [facility] [address] [place] [address] Dr. Carmen Alvarado PLT 131 103/ul Critically low 150-450 [facility] Comment on above: Performed By: #### C BC #### [facility] [address] [place] [address] Dr. Carmen Alvarado RBC 4.14 106/ul Critically low 4.70-6.[address] [facility] Comment on above: Performed By: #### C BC #### [facility] [address] [place] [address] Dr. Carmen Alvarado WBC 5.4 103/ul Normal 4.0-11.0 [facility] Comment on above: Performed By: #### C BC #### [facility] [address] [place] [address] Dr. Carmen Alvarado PROTIMEon 03-10-2022 INR Coag (PPP) [Relative time] 1.84 {INR} Normal [facility] Comment on above: Performed By: #### P T #### [facility] [address] [place] [address] Dr. Carmen Alvarado INR GUIDELINES SEE BELOW Normal [facility] Comment on above: Result Comment: JUANJO RED INR: 2.0 - 3.0 CONDITIONS NOT LISTED BELOW 2.5 - 3.5 FOR PROSTHETIC HEART VALVE REPLACEMENT 2.5 - 3.5 RECURRENT THROMBOSIS Performed By: #### P T #### [facility] [address] [place] [address] Dr. Carmen Alvarado PT Coag (PPP) [Time] 19.1 s Critically high 9.0-11.6 [facility] Comment on above: Performed By: #### P T #### [facility] [address] [place] [address] Dr. Carmen Alvarado TSHon 03-10-2022 TSH 1.351 uIU/mL Normal 0.358-3.740 [facility] Comment on above: Performed By: #### L IPID, CMP #### [facility] [address] [place] [address] Dr. Carmen Alvarado VITAMIN B12on 03-10-2022 Cobalamin (Vitamin B12) [Mass/Vol] 843.0 pg/mL Normal 193.0-986.0 [facility] Comment on above: Performed By: #### L IPID, CMP #### [facility] [address] [place] [address] Dr. Carmen Alvarado VITAMIN D 25 OHon 03-10-2022 VIT D 25-OH 49.4 ng/mL Normal [facility] Comment on above: Performed By: #### L IPID, CMP #### [facility] [address] [place] [address] Dr. Carmen Alvarado VIT D RANGES SEE BELOW Normal [facility] Comment on above: Result Comment: <20 ng/mL Vit D deficient 20 - <30 ng/mL Vit D insufficient 30 - 100 ng/mL Vit D sufficient >100 ng/mL Potential Toxicity Performed By: #### L IPID, CMP #### [facility] [address] [place] [address] Dr. Carmen Alvarado PROTIMEon 02-10-2022 INR Coag (PPP) [Relative time] 2.08 {INR} Normal [facility] Comment on above: Performed By: #### P T #### [facility] [address] [place] [address] Dr. Carmen Alvarado INR GUIDELINES SEE BELOW Normal [facility] Comment on above: Result Comment: JUANJO RED INR: 2.0 - 3.0 CONDITIONS NOT LISTED BELOW 2.5 - 3.5 FOR PROSTHETIC HEART VALVE REPLACEMENT 2.5 - 3.5 RECURRENT THROMBOSIS Performed By: #### P T #### [facility] [address] [place] [address] Dr. Carmen Alvarado PT Coag (PPP) [Time] 21.4 s Critically high 9.0-11.6 [facility] Comment on above: Performed By: #### P T #### [facility] [address] [place] [address] Dr. Carmen Alvarado PROTIMEon 01-06-2022 INR Coag (PPP) [Relative time] 2.01 {INR} Normal [facility] Comment on above: Performed By: #### L IPID, CMP #### [facility] [address] [place] [address] Dr. Carmen Alvardao INR GUIDELINES SEE BELOW Normal [facility] Comment on above: Result Comment: JUANJO RED INR: 2.0 - 3.0 CONDITIONS NOT LISTED BELOW 2.5 - 3.5 FOR PROSTHETIC HEART VALVE REPLACEMENT 2.5 - 3.5 RECURRENT THROMBOSIS Performed By: #### L IPID, CMP #### [facility] [address] [place] [address] Dr. Carmen Alvarado PT Coag (PPP) [Time] 20.7 s Critically high 9.0-11.6 [facility] Comment on above: Performed By: #### L IPID, CMP #### [facility] [address] [place] [address] Dr. Carmen Alvarado PROTIMEon 12-09-2021 INR Coag (PPP) [Relative time] 2.27 {INR} Normal [facility] Comment on above: Performed By: #### L IPID, CMP #### [facility] [address] [place] [address] Dr. Carmen Alvarado INR GUIDELINES SEE BELOW Normal [facility] Comment on above: Result Comment: JUANJO RED INR: 2.0 - 3.0 CONDITIONS NOT LISTED BELOW 2.5 - 3.5 FOR PROSTHETIC HEART VALVE REPLACEMENT 2.5 - 3.5 RECURRENT THROMBOSIS Performed By: #### L IPID, CMP #### [facility] [address] [place] [address] Dr. Carmen Alvarado PT Coag (PPP) [Time] 23.2 s Critically high 9.0-11.6 [facility] Comment on above: Performed By: #### L IPID, CMP #### [facility] [address] [place] [address] Dr. Carmen Alvarado PROTIMEon 11-12-2021 INR Coag (PPP) [Relative time] 2.56 {INR} Normal [facility] Comment on above: Performed By: #### P T #### [facility] [address] [place] [address] Dr. Carmen Alvarado INR GUIDELINES SEE BELOW Normal [facility] Comment on above: Result Comment: JUANJO RED INR: 2.0 - 3.0 CONDITIONS NOT LISTED BELOW 2.5 - 3.5 FOR PROSTHETIC HEART VALVE REPLACEMENT 2.5 - 3.5 RECURRENT THROMBOSIS Performed By: #### P T #### [facility] [address] [place] [address] Dr. Carmen Alvarado PT Coag (PPP) [Time] 26.0 s Critically high 9.0-11.6 [facility] Comment on above: Performed By: #### P T #### [facility] [address] [place] [address] Dr. Carmen Alvarado PROTIMEon 10-07-2021 INR Coag (PPP) [Relative time] 2.25 {INR} Normal [facility] Comment on above: Performed By: #### L IPID, CMP #### [facility] [address] [place] [address] Dr. Carmen Alvarado INR GUIDELINES SEE BELOW Normal [facility] Comment on above: Result Comment: JUANJO RED INR: 2.0 - 3.0 CONDITIONS NOT LISTED BELOW 2.5 - 3.5 FOR PROSTHETIC HEART VALVE REPLACEMENT 2.5 - 3.5 RECURRENT THROMBOSIS Performed By: #### L IPID, CMP #### [facility] [address] [place] [address] Dr. Carmen Alvarado PT Coag (PPP) [Time] 23.0 s Critically high 9.0-11.6 [facility] Comment on above: Performed By: #### L IPID, CMP #### [facility] [address] [place] [address] Dr. Carmen Alvarado CBC AUTO DIFFon 09-10-2021 BASO # 0.0 103/ul Normal 0.0-0.1 [facility] Comment on above: Performed By: #### C BC #### [facility] [address] [place] [address] Dr. Carmen Alvarado Basophils/100 WBC (Bld) 0.2 % Normal 0.2-2.0 [facility] Comment on above: Performed By: #### C BC #### [facility] [address] [place] [address] Dr. Carmen Alvarado EO # 0.1 103/ul Normal 0.0-0.7 [facility] Comment on above: Performed By: #### C BC #### [facility] [address] [place] [address] Dr. Carmen Alvarado Eosinophils/100 WBC (Bld) 2.6 % Normal 0.9-7.0 [facility] Comment on above: Performed By: #### C BC #### [facility] [address] [place] [address] Dr. Carmen Alvarado Erythrocyte distribution width (RBC) [Ratio] 12.6 % Normal 11.0-15.0 [facility] Comment on above: Performed By: #### C BC #### [facility] [address] [place] [address] Dr. Carmen Alvarado Hematocrit (Bld) [Volume fraction] 42.0 % Normal 42.0-54.0 [facility] Comment on above: Performed By: #### C BC #### [facility] [address] [place] [address] Dr. Carmen Alvarado Hemoglobin (Bld) [Mass/Vol] 13.7 g/dL Critically low 14.0-18.0 [facility] Comment on above: Performed By: #### C BC #### [facility] [address] [place] [address] Dr. Carmen Alvarado IG # 0.02 10e3/ul Normal 0.00-0.03 [facility] Comment on above: Performed By: #### C BC #### [facility] [address] [place] [address] Dr. Carmen Alvaardo IG % 0.4 % Normal 0.0-0.5 [facility] Comment on above: Performed By: #### C BC #### [facility] [address] [place] [address] Dr. Carmen Alvarado LYMPH # 1.1 103/ul Critically low 1.2-3.8 [facility] Comment on above: Performed By: #### C BC #### [facility] [address] [place] [address] Dr. Carmen Alvarado Lymphocytes/100 WBC (Bld) 22.6 % Normal 20.5-60.0 [facility] Comment on above: Performed By: #### C BC #### [facility] [address] [place] [address] Dr. Carmen Alvarado MANUAL DIFF REQ NO Normal [facility] Comment on above: Performed By: #### C BC #### [facility] [address] [place] [address] Dr. Carmen Alvarado MCH (RBC) [Entitic mass] 33.1 pg Normal 25.9-34.0 [facility] Comment on above: Performed By: #### C BC #### [facility] [address] [place] [address] Dr. Carmen Alvarado MCHC (RBC) [Mass/Vol] 32.6 g/dL Normal 29.9-35.2 [facility] Comment on above: Performed By: #### C BC #### [facility] [address] [place] [address] Dr. Carmen Alvarado MCV (RBC) [Entitic vol] 101.4 fL Critically high 80.0-94.0 [facility] Comment on above: Performed By: #### C BC #### [facility] [address] [place] [address] Dr. Carmen Alvarado MONO # 0.5 103/ul Normal 0.3-0.8 [facility] Comment on above: Performed By: #### C BC #### [facility] [address] [place] [address] Dr. Carmen Alvarado Monocytes/100 WBC (Bld) 10.6 % Normal 1.7-12.0 [facility] Comment on above: Performed By: #### C BC #### [facility] [address] [place] [address] Dr. Carmen Alvarado NEUT # 3.2 103/ul Normal 1.4-6.5 [facility] Comment on above: Performed By: #### C BC #### [facility] [address] [place] [address] Dr. Carmen Alvarado Neutrophils/100 WBC (Bld) 63.6 % Normal 43.0-75.0 [facility] Comment on above: Performed By: #### C BC #### [facility] [address] [address] [address] Carmen Alvarado Platelet mean volume (Bld) [Entitic vol] 8.6 fL Critically low 9.5-13.5 [facility] Comment on above: Performed By: #### C BC #### [facility] [address] [address] [address] Carmen Alvarado PLT 115 103/ul Critically low 150-450 [facility] Comment on above: Performed By: #### C BC #### [facility] [address] [address] [address] Carmen Alvarado RBC 4.14 106/ul Critically low 4.70-6.10 [facility] Comment on above: Performed By: #### C BC #### [facility] [address] [place] [address] Dr. Carmen Alvarado LIPID PROFILEon 09-10-2021 CHOL-HDL RATIO NORM SEE BELOW Normal [facility] Comment on above: Result Comment: 3.3 - 4.4 LOW RISK 4.4 - 7.1 AVERAGE RISK 7.1 - 11.0 MODERATE RISK >11.0 HIGH RISK Performed By: #### L IPID, CMP #### [facility] [address] [place] [address] Dr. Carmen Alvarado Cholesterol [Mass/Vol] 157 mg/dL Normal <=200 [facility] Comment on above: Performed By: #### L IPID, CMP #### [facility] [address] [place] [address] Dr. Carmen Alvarado Cholesterol in HDL [Mass/Vol] 65 mg/dL Critically high 40-60 [facility] Comment on above: Performed By: #### L IPID, CMP #### [facility] [address] [place] [address] Dr. Carmen Alvarado Cholesterol in LDL [Mass/Vol] 82.4 mg/dL Normal [facility] Comment on above: Performed By: #### L IPID, CMP #### [facility] [address] [place] [address] Dr. Carmen Alvarado Cholesterol.total/Cho lesterol in HDL [Mass ratio] 2.4 {ratio} Normal [facility] Comment on above: Performed By: #### L IPID, CMP #### [facility] [address] [address] [address] Carmen Alvarado HDL NORMAL > or = 60 mg/dl - LO W CARDIOVASCULAR RISK <40 mg/dl - HIGH CARDIOVASCULAR RISK Normal [facility] Comment on above: Performed By: #### L IPID, CMP #### [facility] [address] [place] [address] Dr. Carmen Alvarado LDL CALC NORMAL SEE BELOW Normal [facility] Comment on above: Result Comment: <100 mg/dl OPTIMAL 100 - 129 mg/dl NEAR OR ABOVE OPTIMAL 130 - 159 mg/dl BORDERLINE HIGH 160 - 189 mg/dl HIGH >190 mg/dl VERY HIGH Performed By: #### L IPID, CMP #### [facility] [address] [place] [address] Dr. Carmen Alvarado Triglyceride [Mass/Vol] 48 mg/dL Normal <=150 [facility] Comment on above: Performed By: #### L IPID, CMP #### [facility] [address] [address] [address] Carmen Alvarado VLDL CALC 9.6 mg/dL Normal [facility] Comment on above: Performed By: #### L IPID, CMP #### [facility] [address] [address] [address] Carmen Alvarado PROF 14(COMP METB)on 022 Albumin [Mass/Vol] 3.6 g/dL Normal 3.4-5.0 [facility] Comment on above: Performed By: #### L IPID, CMP #### [facility] [address] [place] [address] Dr. Carmen Alvarado Albumin/Globulin [Mass ratio] 1.0 {ratio} Normal [facility] Comment on above: Performed By: #### L IPID, CMP #### [facility] [address] [address] [address] Carmen Alvarado ALP [Catalytic activity/Vol] 50 U/L Normal 46-116 [facility] Comment on above: Performed By: #### L IPID, CMP #### [facility] [address] [address] [address] Carmen Alvarado ALT [Catalytic activity/Vol] 19 U/L Normal 16-63 [facility] Comment on above: Performed By: #### L IPID, CMP #### [facility] [address] [address] [address] Carmen Alvarado Anion gap [Moles/Vol] 9.6 mmol/L Normal [facility] Comment on above: Performed By: #### L IPID, CMP #### [facility] [address] [address] [address] Carmen Alvarado AST [Catalytic activity/Vol] 15 U/L Normal 15-37 [facility] Comment on above: Performed By: #### L IPID, CMP #### [facility] [address] [place] [address] Dr. Carmen Alvarado Bilirubin [Mass/Vol] 0.7 mg/dL Normal 0.2-1.0 [facility] Comment on above: Performed By: #### L IPID, CMP #### [facility] [address] [place] [address] Dr. Carmen Alvarado Calcium [Mass/Vol] 8.7 mg/dL Normal 8.5-10.1 [facility] Comment on above: Performed By: #### L IPID, CMP #### [facility] [address] [address] [address] Carmen Alvarado Chloride [Moles/Vol] 105 mmol/L Normal 98-107 [facility] Comment on above: Performed By: #### L IPID, CMP #### [facility] [address] [address] [address] Carmen Alvarado CO2 [Moles/Vol] 29.7 mmol/L Normal 21.0-32.0 [facility] Comment on above: Performed By: #### L IPID, CMP #### [facility] [address] [address] [address] Carmen Alvarado Creatinine [Mass/Vol] 0.92 mg/dL Normal 0.70-1.30 [facility] Comment on above: Performed By: #### L IPID, CMP #### [facility] [address] [place] [address] Dr. Carmen Alvarado EGFR-AF IRISH >60 Normal >=60 [facility] Comment on above: Performed By: #### L IPID, CMP #### [facility] [address] [place] [address] Dr. Carmen Alvarado EGFR-NON AF IRISH >60 Normal >=60 [facility] Comment on above: Performed By: #### L IPID, CMP #### [facility] [address] [place] [address] Dr. Carmen Alvarado Globulin (S) [Mass/Vol] 3.5 g/dL Normal [facility] Comment on above: Performed By: #### L IPID, CMP #### [facility] [address] [place] [address] Dr. Carmen Alvarado Glucose [Mass/Vol] 90 mg/dL Normal 74-106 [facility] Comment on above: Performed By: #### L IPID, CMP #### [facility] [address] [place] [address] Dr. Carmen Alvarado Potassium [Moles/Vol] 4.3 mmol/L Normal 3.5-5.1 [facility] Comment on above: Performed By: #### L IPID, CMP #### [facility] [address] [place] [address] Dr. Carmen Alvarado Protein [Mass/Vol] 7.1 g/dL Normal 6.4-8.[address] [facility] Comment on above: Performed By: #### L IPID, CMP #### [facility] [address] [place] [address] Dr. Carmen Alvarado Sodium [Moles/Vol] 140 mmol/L Normal 136-[address] [facility] Comment on above: Performed By: #### L IPID, CMP #### [facility] [address] [place] [address] Dr. Carmen Alvarado Urea nitrogen [Mass/Vol] 22.0 mg/dL Critically high 7.0-18.0 [facility] Comment on above: Performed By: #### L IPID, CMP #### [facility] [address] [address] [address] Carmen Alvarado Urea nitrogen/Creatinine [Mass ratio] 23.9 mg/mg Normal [facility] Comment on above: Performed By: #### L IPID, CMP #### [facility] [address] [address] [address] Carmen Alvarado PROTIMEon 09-10-2021 INR Coag (PPP) [Relative time] 2.13 {INR} Normal [facility] Comment on above: Performed By: #### P T #### [facility] [address] [place] [address] Dr. Carmen Alvarado INR GUIDELINES SEE BELOW Normal [facility] Comment on above: Result Comment: JUANJO RED INR: 2.0 - 3.0 CONDITIONS NOT LISTED BELOW 2.5 - 3.5 FOR PROSTHETIC HEART VALVE REPLACEMENT 2.5 - 3.5 RECURRENT THROMBOSIS Performed By: #### P T #### [facility] [address] [place] [address] Dr. Carmen Alvarado PT Coag (PPP) [Time] 21.9 s Critically high 9.0-11.6 [facility] Comment on above: Performed By: #### P T #### [facility] [address] [place] [address] Dr. Carmen Alvarado Vital Signs Date Time Vital Sign Value Performing Clinician Moralesi cecilio 07-16-2023 13:28-0400 Blood Pressure Location Albaro NEWBERRY [facility] 07-16-2023 13:28-0400 Diastolic blood pressure 92 mm[Hg] Albaro NEWBERRY [facility] 07-16-2023 13:28-0400 Heart rate 59 /min Albaro NEWBERRY [facility] 07-16-2023 13:28-0400 Systolic blood pressure 134 mm[Hg] Albaro TYSON [facility] Encounters Encounter Date Encounter Type Care Provider Facility Start: 09-03-2023 End: 09-03-2023 ambulatory [facility] Start: 08-10-2023 End: 08-10-2023 Lab Drop off Leelee L Leonel [facility] Start: 08-10-2023 End: 08-10-2023 ambulatory Leelee L Leonel Facility:[facility] Start: 07-16-2023 End: 07-17-2023 ambulatory Albaro NEWBERRY Facility:[facility] Start: 07-16-2023 End: 07-16-2023 Lab Drop off Albaro NEWBERRY [facility] Start: 07-16-2023 End: 07-16-2023 Patient encounter procedure Albaro NEWBERRY [facility] Start: 04-14-2023 End: 04-14-2023 ambulatory GERALDO ALTAMIRANO Facility:[facility] Start: 03-31-2023 End: 03-31-2023 ambulatory GERALDO ALTAMIRANO Facility:[facility] Start: 03-23-2023 End: 03-23-2023 ambulatory AUDELIA KIRKPATRICK V Facility:[facility] Start: 03-23-2023 Encounter for other preprocedural examination GERALDO ALTAMIRANO [facility] Start: 02-24-2023 ambulatory GERALDO ALTAMIRANO Facil ity:[facility] Start: 01-12-2023 End: 01-12-2023 ambulatory GERALDO ALTAMIRANO Facility:[facility] Start: 12-16-2022 End: 12-17-2022 ambulatory Polina Olivia [facility] Start: 10-29-2022 End: 10-30-2022 ambulatory Polina Olivia [facility] Start: 07-21-2022 End: 07-22-[address] GERALDO ALTAMIRANO . Facility:[facility] Start: 06-16-2022 End: 06-17-[address] GERALDO ALTAMIRANO . Facility:[facility] Start: 05-19-2022 End: 05-20-[address] GERALDO ALTAMIRANO . Facility:[facility] Start: 04-20-2022 End: 04-21-[address] GERALDO ALTAMIRANO . Facility:[facility] Start: 03-24-2022 End: 03-25-[address] GERALDO ALTAMIRANO . Facility:[facility] Start: 03-10-2022 End: 03-11-[address] GERALDO ALTAMIRANO . Facility:[facility] Start: 02-10-2022 End: 02-11-[address] GERALDO ALTAMIRANO . Facility:[facility] Start: 01-06-2022 End: 01-07-[address] GERALDO ALTAMIRANO . Facility:[facility] Start: 12-09-2021 End: 12-10-[address] GERALDO ALTAMIRANO . Facility:[facility] Start: 11-12-2021 End: 11-13-[address] GERALDO ALTAMIRANO . Facility:[facility] Start: 10-07-2021 End: 10-08-[address] GERALDO ALTAMIRANO . Facility:[facility] Start: 09-10-2021 End: 09-11-[address] GERALDO ALTAMIRANO . Facility:[facility] Start: 07-16-2021 End: 07-16-2021 Patient encounter procedure Dario ROB [facility] Procedures Date Procedure Procedure Detail Performing Clinician Start: 07-16-2023 Flexible cystoscope (physical object) Albaro NEWBERRY Start: 10-03-2013 Transurethral prostatectomy Dario ROB Comment on above: [id number] Start: 07-21-2012 Cystoscopy Dario Childers Comment on above: 08/23/13, 11/07/14, 03/09 03/23, 08/1515, 03/18/16 Start: 01-20-2002 Transrectal biopsy o f prostate using ultrasound guidance Dario ROB Comment on above: 12/03/08 Plan of Treatment Date Care Activity Detail Author Start: 12-20-2023 ambulatory Ambulatory Facility:[facility] Immunizations Immunization Date Immunization Notes Care Provider Jason arredondo 12-05-2022 influenza virus vaccine, unspecified formulation Albaro NEWBERRY [facility] 01-20-2022 SARS-CoV-2 (COVID-19 ) [id number] Albaro TYSON [facility] 12-08-2021 influenza virus vaccine, unspecified formulation Albaro NEWBERRY [facility] 08-21-2021 SARS-CoV-2 mRNA (zisoxkidrpp-yljr-pcczi se) vaccine Albaro TYSON [facility] 12-20-2020 influenza virus vaccine, unspecified formulation Albaro TYSON [facility] 12-04-2020 SARS-CoV-2 (COVID-19 ) mRNA BNT-162b2 vax Albarokaitlin NEWBERRY [facility] Comment on above: Result Comment: 2022: [id number] 2020 SARS-CoV-2 (COVID-19 ) mRNA BNT-162b2 vax Albaro NEWBERRY [facility] 04-01-2020 SARS-CoV-2 (COVID-19 ) mRNA BNT-162b2 vax Albaro NEWBERRY [facility] 12-22-2018 influenza virus vaccine, unspecified formulation Albaro NEWBERRY [facility] 06-06-2018 influenza virus vaccine, live, attenuated, for intranasal use Dario SALMA [facility] 05-25-2018 pneumococcal conjuga te vaccine, 13 valent Albaro NEWBERRY [facility] 04-09-2018 tetanus toxoid, redu cristobal diphtheria toxoid, and acellular pertussis vaccine, adsorbed Albaro NEWBERRY [facility] 12-14-2017 influenza virus vaccine, unspecified formulation Albaro NEWBERRY [facility] 12-14-2016 influenza virus vaccine, unspecified formulation Albaro NEWBERRY [facility] 12-27-2015 influenza virus vaccine, unspecified formulation Albaro NEWBERRY [facility] 12-19-2014 influenza virus vaccine, unspecified formulation Albaro NEWBERRY [facility] 01-11-2014 influenza virus vaccine, unspecified formulation Albaro NEWBERRY [facility] 01-13-2013 influenza virus vaccine, unspecified formulation Albaro NEWBERRY [facility] 01-24-2009 hepatitis A and hepatitis B vaccine Albaro NEWBERRY [facility] 05-30-1997 Td(adult) unspecifie d formulation Albaro NEWBERRY [facility] 11-20-1988 Td(adult) unspecifie d formulation Albaro NEWBERRY [facility] Payers Date Payer Category Payer Medicare [id number] 1959 Unknown [id number] 1940 Unknown [id number] 2.16.84 0.1.519798.3.579.2.593 1942 Unknown [id number] 2.16.84 0.1.249877.3.579.2.593 1942 Unknown [id number] 2.16.84 0.1.848531.3.579.2.593 1942 Unknown [id number] 2.16.84 0.1.159400.3.579.2.593 1942 Unknown [id number] 2.16.84 0.1.688995.3.579.2.593 1942 Unknown [id number] 2.16.84 0.1.644026.3.579.2.593 1942 Unknown [id number] 2.16.84 0.1.795937.3.579.2.593 1942 Unknown [id number] 2.16.84 0.1.780460.3.579.2.593 1942 Unknown [id number] 2.16.84 0.1.449771.3.579.2.593 1942 Unknown [id number] 2.16.84 0.1.542235.3.579.2.593 1942 Unknown [id number] 2.16.84 0.1.749323.3.579.2.593 1942 Unknown [id number] 2.16.84 0.1.623722.3.579.2.593 1942 Unknown [id number] 2.16.8 40.1.402526.3.579.2.727 1942 Unknown [id number] 2.16.8 40.1.026278.3.579.2.727 1942 Unknown [id number] 2.16.8 40.1.733625.3.579.2.727 1942 Unknown [id number] 2.16.8 40.1.234917.3.579.2.727 1942 Unknown [id number] 2.16.8 40.1.152147.3.579.2.727 1942 Unknown [id number] 2.16.8 40.1.972450.3.579.2.727 1942 Unknown [id number] 2.16.8 40.1.649210.3.579.2.727 1942 Unknown [id number] 2.16.8 40.1.362807.3.579.2.1244 Social History Date Type Detail Facility Start: 06-25-2020 End: 08-10-2023 Tobacco smoking status Ex-smoker (finding) [facility] Comment on above: quit in 1971 Tobacco smoking status Never [facility] Comment on above: quit in 1971 Sex Assigned At Male [facility] Functional Status Date Assessment Result Facility 07-16-2023 Functional Status N/A [facility] Clinical Notes 07-09-2021 to 07-16-2023 Note Date & Type Note Facility 07-16-2023 Hospital Discharge instructions Patient Education 07/16/2023 13:54:57 Cystoscopy Cystoscopy Cystoscopy is a procedure that is used to help diagnose and sometimes treat conditions that affect the lower urinary tract. The lower urinary tract includes the bladder and the urethra. The urethra is the tube that drains urine from the bladder. Cystoscopy is done using a thin, tube-shaped instrument with a light and camera at the end (cystoscope). The cystoscope may be hard or flexible, depending on the goal of the procedure. The cystoscope is inserted through the urethra, into the bladder. Cystoscopy may be recommended if you have: Urinary tract infections that keep coming back. Blood in the urine (hematuria). An inability to control when you urinate (urinary incontinence) or an overactive bladder. Unusual cells found in a urine sample. A blockage in the urethra, such as a urinary stone. Painful urination. An abnormality in the bladder found during an intravenous pyelogram (IVP) or CT scan. Cystoscopy may also be done to remove a sample of tissue to be examined under a microscope (biopsy). Tell a health care provider about: Any allergies you have. All medicines you are taking, including vitamins, herbs, eye drops, creams, and osez-ymz-jdgrdxv medicines. Any problems you or family members have had with anesthetic medicines. Any blood disorders you have. Any surgeries you have had. Any medical conditions you have. Whether you are or may be . What are the risks? Generally, this is a safe procedure. However, problems may occur, including: Infection. Bleeding. Allergic reactions to medicines. Damage to other structures or organs. What happens before the procedure? Medicines Ask your health care provider about: Changing or stopping your regular medicines. This is especially important if you are taking diabetes medicines or blood thinners. Taking medicines such as aspirin and ibuprofen. These medicines can thin your blood. Do not take these medicines unless your health care provider tells you to take them. Taking saah-kru-yvumsqe medicines, vitamins, herbs, and supplements. Tests You may have an exam or testing, such as: X-rays of the bladder, urethra, or kidneys. CT scan of the abdomen or pelvis. Urine tests to check for signs of infection. General instructions Follow instructions from your health care provider about eating or drinking restrictions. Ask your health care provider what steps will be taken to help prevent infection. These steps may include: ?Washing skin with a germ-killing soap. ?Taking antibiotic medicine. Plan to have a responsible adult take you home from the hospital or clinic. What happens during the procedure? You will be given one or more of the following: ?A medicine to help you relax (sedative). ?A medicine to numb the area (local anesthetic). The area around the opening of your urethra will be cleaned. The cystoscope will be passed through your urethra into your bladder. Germ-free (sterile) fluid will flow through the cystoscope to fill your bladder. The fluid will stretch your bladder so that your health care provider can clearly examine your bladder lopez. Your doctor will look at the urethra and bladder. Your doctor may take a biopsy or remove stones. The cystoscope will be removed, and your bladder will be emptied. The procedure may vary among health care providers and hospitals. What can I expect after the procedure? After the procedure, it is common to have: Some soreness or pain in your abdomen and urethra. Urinary symptoms. These include: ?Mild pain or burning when you urinate. Pain should stop within a few minutes after you urinate. This may last for up to 1 week. ?A small amount of blood in your urine for several days. ?Feeling like you need to urinate but producing only a small amount of urine. Follow these instructions at home: Medicines Take vlsw-kaf-uussaoz and prescription medicines only as told by your health care provider. If you were prescribed an antibiotic medicine, take it as told by your health care provider. Do not stop taking the antibiotic even if you start to feel better. General instructions Return to your normal activities as told by your health care provider. Ask your health care provider what activities are safe for you. If you were given a sedative during the procedure, it can affect you for several hours. Do not drive or operate machinery until your health care provider says that it is safe. Watch for any blood in your urine. If the amount of blood in your urine increases, call your health care provider. Follow instructions from your health care provider about eating or drinking restrictions. If a tissue sample was removed for testing (biopsy) during your procedure, it is up to you to get your test results. Ask your health care provider, or the department that is doing the test, when your results will be ready. Drink enough fluid to keep your urine pale yellow. Keep all follow-up visits. This is important. Contact a health care provider if: You have pain that gets worse or does not get better with medicine, especially pain when you urinate. You have trouble urinating. You have more blood in your urine. Get help right away if: You have blood clots in your urine. You have abdominal pain. You have a fever or chills. You are unable to urinate. Summary Cystoscopy is a procedure that is used to help diagnose and sometimes treat conditions that affect the lower urinary tract. Cystoscopy is done using a thin, tube-shaped instrument with a light and camera at the end. After the procedure, it is common to have some soreness or pain in your abdomen and urethra. Watch for any blood in your urine. If the amount of blood in your urine increases, call your health care provider. If you were prescribed an antibiotic medicine, take it as told by your health care provider. Do not stop taking the antibiotic even if you start to feel better. This information is not intended to replace advice given to you by your health care provider. Make sure you discuss any questions you have with your health care provider. Document Revised: 11/05/2021 Document Reviewed: 10/04/2020 [employer] Patient Education 2022 [employer]. Follow Up Care 07/01/2023 10:19:12 With:TYSON HOWARD, Albaro Up, URL Address: [address] [place] [address] [place] [address]- When: Unknown [facility] 07-16-2023 Note Urology Cystoscopy Cystoscopy is a procedure that is used to help diagnose and sometimes treat conditions that affect the lower urinary tract. The lower urinary tract includes the bladder and the urethra. The urethra is the tube that drains urine from the bladder. Cystoscopy is done using a thin, tube-shaped instrument with a light and camera at the end (cystoscope). The cystoscope may be hard or flexible, depending on the goal of the procedure. The cystoscope is inserted through the urethra, into the bladder. Cystoscopy may be recommended if you have: ? Urinary tract infections that keep coming back. ? Blood in the urine (hematuria). ? An inability to control when you urinate (urinary incontinence) or an overactive bladder. ? Unusual cells found in a urine sample. ? A blockage in the urethra, such as a urinary stone. ? Painful urination. ? An abnormality in the bladder found during an intravenous pyelogram (IVP) or CT scan. Cystoscopy may also be done to remove a sample of tissue to be examined under a microscope (biopsy). Tell a health care provider about: ? Any allergies you have. ? All medicines you are taking, including vitamins, herbs, eye drops, creams, and satj-fzc-sibkepp medicines. ? Any problems you or family members have had with anesthetic medicines. ? Any blood disorders you have. ? Any surgeries you have had. ? Any medical conditions you have. ? Whether you are or may be . What are the risks? Generally, this is a safe procedure. However, problems may occur, including: ? Infection. ? Bleeding. ? Allergic reactions to medicines. ? Damage to other structures or organs. What happens before the procedure? Medicines Ask your health care provider about: ? Changing or stopping your regular medicines. This is especially important if you are taking diabetes medicines or blood thinners. ? Taking medicines such as aspirin and ibuprofen. These medicines can thin your blood. Do not take these medicines unless your health care provider tells you to take them. ? Taking dchm-ckt-cnbtifd medicines, vitamins, herbs, and supplements. Tests You may have an exam or testing, such as: ? X-rays of the bladder, urethra, or kidneys. ? CT scan of the abdomen or pelvis. ? Urine tests to check for signs of infection. General instructions ? Follow instructions from your health care provider about eating or drinking restrictions. ? Ask your health care provider what steps will be taken to help prevent infection. These steps may include: ? Washing skin with a germ-killing soap. ? Taking antibiotic medicine. ? Plan to have a responsible adult take you home from the hospital or clinic. What happens during the procedure? ? You will be given one or more of the following: ? A medicine to help you relax (sedative). ? A medicine to numb the area (local anesthetic). ? The area around the opening of your urethra will be cleaned. ? The cystoscope will be passed through your urethra into your bladder. ? Germ-free (sterile) fluid will flow through the cystoscope to fill your bladder. The fluid will stretch your bladder so that your health care provider can clearly examine your bladder lopez. ? Your doctor will look at the urethra and bladder. Your doctor may take a biopsy or remove stones. ? The cystoscope will be removed, and your bladder will be emptied. The procedure may vary among health care providers and hospitals. What can I expect after the procedure? After the procedure, it is common to have: ? Some soreness or pain in your abdomen and urethra. ? Urinary symptoms. These include: ? Mild pain or burning when you urinate. Pain should stop within a few minutes after you urinate. This may last for up to 1 week. ? A small amount of blood in your urine for several days. ? Feeling like you need to urinate but producing only a small amount of urine. Follow these instructions at home: Medicines ? Take cqry-rmt-epywmcz and prescription medicines only as told by your health care provider. ? If you were prescribed an antibiotic medicine, take it as told by your health care provider. Do not stop taking the antibiotic even if you start to feel better. General instructions ? Return to your normal activities as told by your health care provider. Ask your health care provider what activities are safe for you. ? If you were given a sedative during the procedure, it can affect you for several hours. Do not drive or operate machinery until your health care provider says that it is safe. ? Watch for any blood in your urine. If the amount of blood in your urine increases, call your health care provider. ? Follow instructions from your health care provider about eating or drinking restrictions. ? If a tissue sample was removed for testing (biopsy) during your procedure, it is up to you to get your test results. Ask your health care provider, or the department th (more content not included)... [facility] 03-23-2023 Note HNO ID: [id number] Author: SONYA CHERRY COA Service: ? Author Type: Financial Engineer Type: Progress Notes Filed: 03/23/2023 08:21 Note Text: Confirmed Aim: Russell OU YONATAN Cardoso March 23, 2023 8:20 AM [facility] 01-12-2023 Note HNO ID: [id number] Author: Audelia Kirkpatrick V, MD Service: ? Author Type: Physician Type: Progress Notes Filed: 01/12/2023 4:05 PM Note Text: The documentation for this note was completed by CORIE Kern acting as a scribe for Audelia KIRKPATRICK MD. 01/12/2023 3:59 PM. ASSESSMENT / PLAN: 1. Combined cataract, both eyes - Offered cataract extraction by phacoemulsification and intraocular lens implant with Dr. Kirkpatrick, both eyes, left eye first - Aim: plano Both eyes (will require prism in specs for RHT) - Flomax/alpha-dejon? No - Toric candidate: No - PanOptix candidate: No - Anesthesia: Topical with MAC - Contact lens use No - History of LASIK/PRK/RK No - Discussed initiate twice daily eyelid scrubs pending U/S biometry and surgery - Comanage with Dr Hummel; [facility] POD #1 Cataract Presurgical Documentation Cataract: Left eye (OS) then Right eye (OD) Current Visual Acuity Right Eye Distance CC 20/50 Left Eye Distance CC 20/30 Best Corrected Vision Right Eye 20/25+2 Best Corrected Vision Left Eye 20/25-2 Glare Testing: Right Eye High 20/125 Left Eye High 20/60- Visual Function: Mckenzie Madrigal states that the decline in vision from the cataract impedes his abilities as listed in the HPI, as well as other activities of daily living. Mckenzie Madrigal has confirmed that he is no longer able to function adequately on a day-to-day basis because of his current visual condition. Further, it is my medical opinion that the cataract is the primary cause, or at least a significantly contributory cause of his visual dysfunction. With uncomplicated cataract surgery and lens implantation, it is my expectation that his visual function and quality of life will improve significantly. The risks, benefits, alternatives, personnel and complications of cataract surgery with lens implantation were discussed with Mckenzie Madrigal in detail. These included, but are not limited to: infection, bleeding, loss of vision, and the need for additional surgery. he appeared to understand and asked that I proceed with plans for surgery. Patient acknowledges possible need for glasses after procedure. Intraocular lens options were discussed with patient. If patient was a good candidate for multifocal Intraocular lenses, risk of halos, glare, and possible need for glasses was discussed. Informed consent form signed by physician and patient. Literature regarding cataract and cataract extraction by phacoemulsification offered. Return for preadmission testing, biometry AND intraocular lens calculations prior to surgery. The patient was offered a surgery/procedure at a [facility] facility. The surgeon/proceduralist and patient have discussed in detail the risk of exposure to and/or potential harm posed by the COVID-19 virus with having a surgery/procedure at this time versus the risk of delaying the surgery/procedure. It is not possible to know either the risk of delaying the surgery or procedure or chance of getting an infection with perfect accuracy, but a joint decision was made between the patient and the surgeon/proceduralist to proceed at this time with the scheduled surgery/procedure as indicated on the consent form. The documentation recorded by the scribe accurately reflects the service I personally performed and the decisions made by me. I have confirmed and edited as necessary the relevant ophthalmic history, ROS, and the exam findings as obtained by others. I have seen and examined Mckenzie Madrigal. I also have reviewed and agree with the assessment and plan as stated above and agree with all of its relevant components. Audelia KIRKPATRICK MD January 12, 2023 3:59 PM [facility] 01-12-2023 Note HNO ID: [id number] Author: Jose Tavera OD Service: ? Author Type: ADJUSTMENT EXAMINER Type: Progress Notes Filed: 01/12/2023 4:05 PM Note Text: ASSESSMENT/PLAN: 1. Combined forms of age-related cataract of both eyes - ICD9: 366.19, ICD10: H25.813 (primary diagnosis) Dr Audelia Kirkpatrick Cataract evaluation today Pt is ++ photophobic and quite anxious with contact around his eyes 2. 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 I have seen and examined this patient. I also have reviewed and agree with the assessment and plan as stated above and agree with all of its relevant components. Jose Tavera, OD January 12, 2023 3:45 PM [facility] 07-16-2021 Evaluation + Plan note Diagnostic Tests PendingUroVysion Fish and Urine Cyto ([facility]) 07/16/21 [facility] 07-09-2021 Hospital Discharge instructions Follow Up Care 07/09/2021 11:55:39 With:Dario ROB Address: [address] [place] [id number] Business (1) When:1 year With:Dario ROB Address: [address] [place] [id number] Business (1) When: Unknown [facility] Evaluation + Plan note Future Appointments Appointment Date:12/20/2023 09:30:00 AM Scheduled Provider: Location:[facility] Appointment Type: Medicare Wellness Subsequent [facility] Evaluation + Plan note Future Appointments Appointment Date:12/20/2023 09:30:00 AM Scheduled Provider: Location:[facility] Appointment Type: Medicare Wellness Subsequent Diagnostic Tests PendingUroVysion Fish and Urine Cyto ([facility]) 07/16/23 [facility] Hospital course Narrative No data available for this section [facility] Hospital Discharge instructions No data available for this section [facility] Progress note No data available for this section [facility] Summary Purpose Family History No Family History Records FoundNo Family History Records Found No data available for this section No data available for this section No Family History Records Found No data available for this section No Family History Records FoundNo Family History Records FoundNo Family History Records FoundNo Family History Records FoundNo Family History Records FoundNo Family History Records Found Advance Directives No Advanced Directives Records FoundNo Advanced Directives Records FoundNo Advanced Directives Records FoundNo Advanced Directives Records FoundNo Advanced Directives Records FoundNo Advanced Directives Records FoundNo Advanced Directives Records FoundNo Advanced Directives Records FoundNo Advanced Directives Records Found Additional Source Comments (unrecognized sect ion and content) No Status Records FoundNo Status Records FoundNo Status Records FoundNo Status Records FoundNo Status Records FoundNo Status Records FoundNo Status Records FoundNo Status Records FoundNo Status Records Found INFORMATION SOURCE (unrecogn ized section and content) DATE CREATED AUTHOR 07/22/2022 [facility] DATE CREATED AUTHOR AUTHOR'S ORGANIZ ATION 04/15/2023 [facility] DATE CREATED AUTHOR AUTHOR'S ORGANIZ ATION 08/06/2023 [facility] DATE CREATED AUTHOR AUTHOR'S ORGANIZ ATION 08/12/2023 [facility] DATE CREATED AUTHOR AUTHOR'S ORGANIZ ATION 09/09/2023 [facility] Patient Care team informatio n (unrecognized section and content) Personnel Name: Polina Olivia MD Address: Address: [facility] [address] Personnel Name: Polina Olivia MD Address: Address: [address] [place] [address] Personnel Name: Polina Olivia MD Address: Address: [address] [place] [address] FOR RECORDS PERTAINING TO PATIENTS WHO ARE OR HAVE BEEN ENROLLED IN A CHEMICAL DEPENDENCY/SUBSTANCEABUSE PROGRAM, SOME INFORMATION MAY BE OMITTED. This clinical summary was aggregated from multiple sources. Caution should be exercised in using it in the provision of clinical care. This summary normalizes information from multiple sources, and as a consequence, information in this document may materially change the coding, format and clinical context of patient data. In addition, data may be omitted in some cases. CLINICAL DECISIONS SHOULD BE BASED ON THE PRIMARY CLINICAL RECORDS. [employer] [facility]. provides no warranty or guarantee of the accuracy or completeness of information in this document.
[2023-09-23 14:36] LABS: Estimated GFR (African America >60 (>=60); Estimated GFR (Non-African Ame >60 (>=60)
--- NOTE | 2023-09-23 14:39 | XR_ITS ---
The [address] [address] Patient Name: MCKENZIE MADRIGAL MRN: [id number] date: 1940 Sex: M Assigned Patient Location: LAB Current Patient Location: LAB Accession/Order Number: [id number] Exam Date: 09/23/2023 14:40 Report Date: 09/23/2023 14:56 At the request of: MCKENZIE LOERA Procedure: XR foreign body eye RONNIE EXAMINATION: XR foreign body eye RONNIE HISTORY: Foreign Body Eye COMPARISON: No relevant comparison available. FINDINGS: ORBITS: Negative for a metallic foreign body. OTHER: Negative. XR/XR foreign body eye RONNIE IMPRESSION: 1. No metallic foreign body within the orbits. Electronically authenticated by: JEOVANY ALEGRE Date: 09/23/2023 14:56
[2023-09-24 12:10] LABS: Thyroid Peroxidase (TPO) Ab <9 IU/mL (0-34)
[2023-09-26 16:10] LABS: Thyrotropin Receptor Ab, Serum <1.10 IU/L (0.00-1.75)
[2023-09-26 17:11] LABS: Thyroid Stim Immunoglobulin <0.10 IU/L (0.00-0.55)
== END 2023-09-23 13:41 | disposition home or self-care (01) ==
LOC: LAB 13:40
PROVIDERS: PCP Optometrist; Visit Provider Psychiatry & Neurology Neurology
DX: H53.2 Diplopia (principal); H50.21 Vertical strabismus, right eye
CPT/HCPCS: 36415; 70030; 70543; 70553; 82565; 83520; 84445; 86041; 86042; 86043; 86376; A9575

== ENCOUNTER 2023-10-07 00:37 | Outpatient (RCR) | payer MEDICARE, SELFPAY | END 2023-11-05 10:18 | disposition home or self-care (01) | LOC: MM 00:37 | PROVIDERS: PCP Optometrist; Visit Provider Internal Medicine | DX: Z51.81 Encounter for therapeutic drug level monitoring (principal); Z79.01 Long term (current) use of anticoagulants; D68.59 Other primary thrombophilia; D64.9 Anemia, unspecified; I10 Essential (primary) hypertension; E78.5 Hyperlipidemia, unspecified | CPT/HCPCS: 85610; G0463 ==

== ENCOUNTER 2023-11-08 01:44 | Outpatient (RCR) | payer MEDICARE, SELFPAY | END 2023-12-06 23:58 | disposition home or self-care (01) | LOC: MM 01:44 | PROVIDERS: PCP Optometrist; Visit Provider Internal Medicine | DX: Z51.81 Encounter for therapeutic drug level monitoring (principal); Z79.01 Long term (current) use of anticoagulants; D68.59 Other primary thrombophilia; E78.5 Hyperlipidemia, unspecified; D64.9 Anemia, unspecified | CPT/HCPCS: 85610; G0463 ==

== ENCOUNTER 2023-12-07 02:39 | Outpatient (RCR) | payer MEDICARE, SELFPAY | END 2024-01-06 23:34 | disposition home or self-care (01) | LOC: MM 02:39 | PROVIDERS: PCP Optometrist; Visit Provider Internal Medicine | DX: Z51.81 Encounter for therapeutic drug level monitoring (principal); Z79.01 Long term (current) use of anticoagulants; D68.59 Other primary thrombophilia; I10 Essential (primary) hypertension; E78.5 Hyperlipidemia, unspecified; D64.9 Anemia, unspecified | CPT/HCPCS: 85610; G0463 ==

== ENCOUNTER 2024-01-07 13:20 | Outpatient (RCR) | payer MEDICARE, SELFPAY | END 2024-02-05 23:59 | disposition home or self-care (01) | LOC: MM 13:20 | PROVIDERS: PCP Optometrist; Visit Provider Internal Medicine | DX: Z51.81 Encounter for therapeutic drug level monitoring (principal); Z79.01 Long term (current) use of anticoagulants; D68.59 Other primary thrombophilia; D64.9 Anemia, unspecified; E78.5 Hyperlipidemia, unspecified; I10 Essential (primary) hypertension | CPT/HCPCS: 85610; G0463 ==

== ENCOUNTER 2024-02-07 06:05 | Outpatient (RCR) | payer MEDICARE, SELFPAY | END 2024-03-07 09:09 | disposition home or self-care (01) | LOC: MM 06:05 | PROVIDERS: PCP Optometrist; Visit Provider Internal Medicine | DX: Z51.81 Encounter for therapeutic drug level monitoring (principal); Z79.01 Long term (current) use of anticoagulants; D68.59 Other primary thrombophilia; E78.5 Hyperlipidemia, unspecified; I10 Essential (primary) hypertension; D64.9 Anemia, unspecified | CPT/HCPCS: 85610; G0463 ==

== ENCOUNTER 2024-03-09 01:51 | Outpatient (RCR) | payer MEDICARE, SELFPAY | END 2024-04-07 14:31 | disposition home or self-care (01) | LOC: MM 01:51 | PROVIDERS: PCP Optometrist; Visit Provider Internal Medicine | DX: Z51.81 Encounter for therapeutic drug level monitoring (principal); Z79.01 Long term (current) use of anticoagulants; D68.59 Other primary thrombophilia; D64.9 Anemia, unspecified; E78.5 Hyperlipidemia, unspecified | CPT/HCPCS: 85610; G0463 ==

== ENCOUNTER 2024-04-10 02:23 | Outpatient (RCR) | payer MEDICARE, SELFPAY | END 2024-05-05 13:42 | disposition home or self-care (01) | LOC: MM 02:23 | PROVIDERS: PCP Optometrist; Visit Provider Internal Medicine | DX: Z51.81 Encounter for therapeutic drug level monitoring (principal); Z79.01 Long term (current) use of anticoagulants; D68.59 Other primary thrombophilia; I10 Essential (primary) hypertension; E78.5 Hyperlipidemia, unspecified | CPT/HCPCS: 85610; G0463 ==

== ENCOUNTER 2024-05-06 12:40 | Outpatient (RCR) | payer MEDICARE, SELFPAY | END 2024-06-02 12:39 | disposition home or self-care (01) | LOC: MM 12:40 | PROVIDERS: PCP Optometrist; Visit Provider Internal Medicine | DX: Z51.81 Encounter for therapeutic drug level monitoring (principal); Z79.01 Long term (current) use of anticoagulants; I10 Essential (primary) hypertension; E78.5 Hyperlipidemia, unspecified; Z92.29 Personal history of other drug therapy; D64.9 Anemia, unspecified; D68.59 Other primary thrombophilia | CPT/HCPCS: 85610; G0463 ==

== ENCOUNTER 2024-06-06 05:44 | Outpatient (RCR) | payer MEDICARE, SELFPAY | END 2024-07-05 16:20 | disposition home or self-care (01) | LOC: MM 05:44 | PROVIDERS: PCP Optometrist; Visit Provider Internal Medicine | DX: Z51.81 Encounter for therapeutic drug level monitoring (principal); Z79.01 Long term (current) use of anticoagulants; I10 Essential (primary) hypertension; E78.5 Hyperlipidemia, unspecified; D64.9 Anemia, unspecified | CPT/HCPCS: 85610; G0463 ==

== ENCOUNTER 2024-07-06 04:52 | Outpatient (RCR) | payer MEDICARE, SELFPAY | END 2024-08-05 07:09 | disposition home or self-care (01) | LOC: MM 04:52 | PROVIDERS: PCP Optometrist; Visit Provider Internal Medicine | DX: Z51.81 Encounter for therapeutic drug level monitoring (principal); Z79.01 Long term (current) use of anticoagulants; I10 Essential (primary) hypertension; E78.5 Hyperlipidemia, unspecified; Z92.29 Personal history of other drug therapy; D64.9 Anemia, unspecified; D68.59 Other primary thrombophilia | CPT/HCPCS: 85610; G0463 ==

== ENCOUNTER 2024-08-06 07:36 | Outpatient (RCR) | payer MEDICARE, SELFPAY | END 2024-08-31 14:36 | disposition home or self-care (01) | LOC: MM 07:36 | PROVIDERS: PCP Optometrist; Visit Provider Internal Medicine | DX: Z51.81 Encounter for therapeutic drug level monitoring (principal); Z79.01 Long term (current) use of anticoagulants; I10 Essential (primary) hypertension; E78.5 Hyperlipidemia, unspecified; Z92.29 Personal history of other drug therapy; D64.9 Anemia, unspecified; D68.59 Other primary thrombophilia | CPT/HCPCS: 85610; G0463 ==

== ENCOUNTER 2024-09-05 02:35 | Outpatient (RCR) | payer MEDICARE, SELFPAY | END 2024-10-05 16:35 | disposition home or self-care (01) | LOC: MM 02:35 | PROVIDERS: PCP Optometrist; Visit Provider Internal Medicine | DX: Z51.81 Encounter for therapeutic drug level monitoring (principal); Z79.01 Long term (current) use of anticoagulants | CPT/HCPCS: 85610; G0463 ==

== ENCOUNTER 2024-10-06 00:38 | Outpatient (RCR) | payer MEDICARE, SELFPAY | END 2024-11-02 12:35 | disposition home or self-care (01) | LOC: MM 00:38 | PROVIDERS: PCP Optometrist; Visit Provider Internal Medicine | DX: Z51.81 Encounter for therapeutic drug level monitoring (principal); Z79.01 Long term (current) use of anticoagulants; I10 Essential (primary) hypertension; E78.5 Hyperlipidemia, unspecified; D64.9 Anemia, unspecified; D68.59 Other primary thrombophilia; Z92.29 Personal history of other drug therapy | CPT/HCPCS: 85610; G0463 ==

== ENCOUNTER 2024-11-06 03:06 | Outpatient (RCR) | payer MEDICARE, SELFPAY | END 2024-12-05 15:02 | disposition home or self-care (01) | LOC: MM 03:06 | PROVIDERS: PCP Optometrist; Visit Provider Internal Medicine | DX: Z51.81 Encounter for therapeutic drug level monitoring (principal); Z79.01 Long term (current) use of anticoagulants | CPT/HCPCS: 85610; G0463 ==

== ENCOUNTER 2024-12-06 05:22 | Outpatient (RCR) | payer MEDICARE, SELFPAY | END 2025-01-05 23:59 | disposition home or self-care (01) | LOC: MM 05:22 | PROVIDERS: PCP Optometrist; Visit Provider Internal Medicine | DX: Z51.81 Encounter for therapeutic drug level monitoring (principal); Z79.01 Long term (current) use of anticoagulants | CPT/HCPCS: 85610; G0463 ==

== ENCOUNTER 2025-01-09 11:14 | Outpatient (RCR) | payer MEDICARE, SELFPAY | END 2025-02-04 23:59 | disposition home or self-care (01) | LOC: MM 11:14 | PROVIDERS: PCP Optometrist; Visit Provider Optometrist | DX: Z51.81 Encounter for therapeutic drug level monitoring (principal); Z79.01 Long term (current) use of anticoagulants; D68.59 Other primary thrombophilia | CPT/HCPCS: 85610; G0463 ==

== ENCOUNTER 2025-02-05 12:31 | Outpatient (RCR) | payer MEDICARE, SELFPAY | END 2025-03-07 12:55 | disposition home or self-care (01) | LOC: MM 12:31 | PROVIDERS: PCP Optometrist; Visit Provider Internal Medicine | DX: Z51.81 Encounter for therapeutic drug level monitoring (principal); Z79.01 Long term (current) use of anticoagulants; D68.59 Other primary thrombophilia | CPT/HCPCS: 85610; G0463 ==